=== PATIENT | female | born 1975 | race Caucasian/White ===

== ENCOUNTER 2017-12-18 18:04 | Emergency (ER) | payer BC ==
[2017-12-18] MEDS ORDERED: SODIUM CHLORIDE 0.9% 1,000 ML IV STA (20:53)
[2017-12-18 21:49] LABS: Basophils % (A) 0 %; Eosinophils # (A) 0.2 k/uL (0-0.7); Eosinophils % (A) 2 %; HCT 43.5 % (34.0-46.0); HGB 13.7 gm/dL (11.4-16.0); Lymphocytes # (A) 2.3 k/uL (1.0-4.8); Lymphocytes % (A) 27 %; MCH 26.4 pg (25.0-35.0); MCHC 31.4 g/dL (31.0-37.0); Mean Platelet Volume 8.1; Monocytes # (A) 0.4 k/uL (0-1.0); Monocytes % (A) 4 %; Neutrophils # (A) 5.7 k/uL (1.3-7.7); Neutrophils % (A) 65 %; Platelet Count 182 k/uL (150-450); RBC 5.18 m/uL (3.80-5.40); WBC 8.7 k/uL (3.8-10.6)
[2017-12-18 21:59] LABS: ALT 18 U/L (9-52); AST 19 U/L (14-36); Alkaline Phosphatase 75 U/L (38-126); Anion Gap 15 mmol/L; Blood Urea Nitrogen 11 mg/dL (7-17); Calcium 10.3 mg/dL (8.4-10.2); Carbon Dioxide 25 mmol/L (22-30); Chloride 102 mmol/L (98-107); Glucose 96 mg/dL (74-99); Potassium 3.6 mmol/L (3.5-5.1); Sodium 142 mmol/L (137-145); Total Bilirubin 0.4 mg/dL (0.2-1.3)
[2017-12-18 22:01] LABS: INR 1.2 (<1.2); Partial Thromboplastin Time 24.8 sec (22.0-30.0); Prothrombin Time 11.2 sec (9.0-12.0)
--- NOTE | 2017-12-18 22:03 | XR ---
EXAMINATION TYPE: XR chest 2V DATE OF EXAM: 12/18/2017 COMPARISON: 11/24/2013 HISTORY: Chest pain TECHNIQUE: Frontal and lateral views of the chest are obtained. FINDINGS: Heart and mediastinum are normal. Lungs are clear. Diaphragm is normal. Bony thorax appear s normal. IMPRESSION: Normal chest. No change.
[2017-12-18 22:10] LABS: Creatine Kinase 66 U/L (30-135)
--- NOTE | 2017-12-18 22:21 | ED ---
Chest Pain HPI - General Chief Complaint: Chest Pain Stated Complaint: Chest pain/pain lt arm Time Seen by Provider: 12/18/17 20:36 Source: patient, RN notes reviewed Mode of arrival: ambulatory Limitations: no limitations - History of Present Illness Initial Comments: This is a 42-year-old female presents to the emergency department with chief complaint of chest pain. Patient states that this morning she woke up at approximately 5:30 AM. She states that she had some left-sided facial numbness and left arm numbness. She states that she still has feeling and no weakness in left side of her body but has decreased sensation. Patient states that she also has intermittent sharp pain between her shoulder blades. These occur 1-2 times per hour. The first time she experienced pain was 10 or 11:00 AM this morning. Patient denies any shortness of breath, nausea or vomiting, diaphoresis. She does state that she has a history of chronic back pain with subsequent surgeries. Patient states that she was recently weaned off of her medications for anxiety and panic disorder. She has been off of her Klonopin for one and half weeks and her trazodone for a couple of days. Patient states that she is worried because she has extensive family history of cardiac disease. Patient denies any recent surgeries or hospitalizations. She denies tobacco use. Denies any recent illnesses, fever or chills. - Related Data Home Medications Medication Instructions Recorded Confirmed Multivitamins, Thera [Multivitamin 1 tab PO DAILY 12/18/17 12/18/17 (formulary)] Allergies Allergy/AdvReac Type Severity Reaction Status Date / Time tramadol Allergy SEIZURE Verified 12/18/17 20:58 fentanyl AdvReac Nausea & Verified 12/18/17 20:58 Vomiting moxifloxacin HCl AdvReac HEADACHE Verified 12/18/17 20:58 [From Avelox] nitrofurantoin AdvReac HEADACHE Verified 12/18/17 20:58 macrocrystalline [From Macrodantin] Review of Systems ROS Statement: Those systems with pertinent positive or pertinent negative responses have been documented in the HPI. ROS Other: All systems not noted in ROS Statement are negative. Past Medical History Past Medical History: Hyperlipidemia, Hypertension Additional Past Medical History / Comment(s): ABDOMINAL PAIN, N/V, CHRONIC BACK PAIN, History of Any Multi-Drug Resistant Organisms: None Reported Past Surgical History: Back Surgery, Section Additional Past Surgical History / Comment(s): LAMINECTOMY, DISCECTOMY, D&C X4, CSEC X2 Past Anesthesia/Blood Transfusion Reactions: No Reported Reaction Past Psychological History: Anxiety Smoking Status: Former smoker Past Alcohol Use History: None Reported Past Drug Use History: Marijuana General Exam - General Exam Comments Initial Comments: General: Awake and alert, well-developed; in no apparent distress. HEENT: Head atraumatic, normocephalic. Pupils are equal, round and reactive to light. Extraocular movements intact. Oropharynx moist without erythema or exudate. Neck: Supple. Normal ROM. Cardiovascular: Regular rate and rhythm. No murmurs, rubs or gallops. Chest symmetrical. Respiratory: Lungs clear to auscultation bilaterally. No wheezes, rales or rhonchi. Normal respiratory effort with no use of accessory muscles. Musculoskeletal: Normal ROM, no tenderness, strength 5/5 bilateral upper and lower extremities. Ambulating normally. Pulses are 2+ equal and palpable bilaterally. Skin: [place], warm and dry without rashes or lesions. Neurological: Alert and oriented x3. CN II-XII grossly intact. Speech is fluent and answers are appropriate. No focal neuro deficits. Psychiatric: Normal mood and affect.Appears anxious. Limitations: no limitations Course Vital Signs 12/18/17 12/18/17 18:46 22:49 Temperature 99.7 F H 98.0 F Pulse Rate 75 71 Respiratory 20 17 Rate Blood Pressure 193/93 162/96 O2 Sat by Pulse 100 100 Oximetry Chest [facility] Chest x-ray findings: Heart and mediastinum are normal. Lungs are clear. Diaphragm is normal. Bony thorax is normal. Impression: Normal chest. No change. As read by Dr. Read This is a 42-year-old female presents to the emergency department for evaluation of chest pain. She reports intermittent sharp pain between shoulder blades that began this morning, along with left-sided facial and arm "numbness. " Denies shortness of breath, nausea or vomiting, diaphoresis. On physical examination, cranial nerves are intact. There are no focal neuro deficits. Discussed computed tomography scan of brain with patient who refuses, stating that it is too expensive. She states she will follow up with her primary care provider tomorrow morning regarding this issue. EKG showed normal sinus rhythm. Chest x-ray revealed no acute abnormalities. CBC, CMP and UA were within normal limits. Troponin and cardiac profile are negative. D-dimer was negative. Patient's vital signs are stable and she is in no acute distress. She will be discharged home. Recommended following up with her PCP within the next 1-2 days. Patient is in agreement with plan and voices understanding. All questions were answered. Disposition Clinical Impression: Atypical chest pain Disposition: HOME SELF-CARE Condition: Good Instructions: Chest Pain (ED) Additional Instructions: Please follow up with primary care provider tomorrow morning. Return to emergency department if symptoms should worsen or any concerns arise. Referrals: Maximus Arellano DO [Primary Care Provider] - 1-2 days Time of Disposition: 23:52
[2017-12-18 22:23] LABS: Creatine Kinase MB 0.5 ng/mL (0.0-2.4); Troponin I <0.012 ng/mL (0.000-0.034)
[2017-12-19 00:06] VITALS: BP 132/65; PULSE 78; RESP 20; TEMP 98.9
== END 2017-12-19 00:05 | disposition home or self-care (01) ==
LOC: EC 18:04
DX: R07.89 Other chest pain (principal); R20.0 Anesthesia of skin; Z87.891 Personal history of nicotine dependence; Z79.899 Other long term (current) drug therapy; Z88.1 Allergy status to other antibiotic agents; Z88.5 Allergy status to narcotic agent; Z88.6 Allergy status to analgesic agent
CPT/HCPCS: 36415; 71046; 80053; 82550; 82553; 83735; 84484; 85025; 85379; 85610; 85730; 93005; 96360; 99285

== ENCOUNTER 2019-09-22 10:46 | Inpatient (IN) | payer BC ==
--- NOTE | 2019-09-22 12:04 | ED ---
General Adult HPI - General Chief complaint: Psychiatric Symptoms Stated complaint: mental health, suicidal thoughts Time Seen by Provider: 09/22/19 10:50 Source: patient, RN notes reviewed Mode of arrival: ambulatory Limitations: no limitations - History of Present Illness Initial comments: This is a 44 year old female who presents emergency Department complaining of being depressed and wanting to kill herself. Patient states she would take pills. Patient states she has a long history of depression and she just had a friend Sunday and since then she is extremely depressed and has had quite a few suicidal thoughts. Patient denies any physical complaints today. Patient denies any attempt to harm herself today. Patient states she willingly came in for help. Patient denies any drug use or alcohol use. - Related Data Home Medications Medication Instructions Recorded Confirmed ARIPiprazole [Abilify] 5 mg PO DAILY 09/22/19 09/22/19 Citalopram Hydrobromide [CeleXA] 20 mg PO DAILY 09/22/19 09/22/19 Levothyroxine Sodium [Synthroid] 50 mcg PO DAILY 09/22/19 09/22/19 clonazePAM [KlonoPIN] 0.5 mg PO BID PRN 09/22/19 09/22/19 traZODone HCL [Desyrel] 100 mg PO HS 09/22/19 09/22/19 Allergies Allergy/AdvReac Type Severity Reaction Status Date / Time fentanyl AdvReac Nausea & Verified 09/22/19 12:10 Vomiting moxifloxacin HCl AdvReac HEADACHE Verified 09/22/19 12:10 [From Avelox] nitrofurantoin AdvReac HEADACHE Verified 09/22/19 12:10 macrocrystalline [From Macrodantin] tramadol AdvReac SEIZURE Verified 09/22/19 12:10 Review of Systems ROS Statement: Those systems with pertinent positive or pertinent negative responses have been documented in the HPI. ROS Other: All systems not noted in ROS Statement are negative. Past Medical History Past Medical History: Hyperlipidemia, Hypertension Additional Past Medical History / Comment(s): ABDOMINAL PAIN, N/V, CHRONIC BACK PAIN, History of Any Multi-Drug Resistant Organisms: None Reported Past Surgical History: Back Surgery, Section Additional Past Surgical History / Comment(s): LAMINECTOMY, DISCECTOMY, D&C X4, CSEC X2 Past Anesthesia/Blood Transfusion Reactions: No Reported Reaction Past Psychological History: Anxiety, Depression Smoking Status: Former smoker Past Alcohol Use History: None Reported Past Drug Use History: Marijuana General Exam - General Exam Comments Initial Comments: GENERAL: Patient is well-developed and well-nourished. Patient is nontoxic and well- hydrated and is in mild distress. ENT: Neck is soft and supple. No significant lymphadenopathy is noted. Oropharynx is clear. Moist mucous membranes. Neck has full range of motion without eliciting any pain. EYES: The sclera were anicteric and conjunctiva were pink and moist. Extraocular movements were intact and pupils were equal round and reactive to light. Eyelid s were unremarkable. PULMONARY: Unlabored respirations. Good breath sounds bilaterally. No audible rales rhonchi or wheezing was noted. CARDIOVASCULAR: There is a regular rate and rhythm without any murmurs gallops or rubs. ABDOMEN: Soft and nontender with normal bowel sounds. SKIN: Skin is clear with no lesions or rashes and otherwise unremarkable. NEUROLOGIC: Patient is alert and oriented x3. Cranial nerves II through XII are grossly intact. Motor and sensory are also intact. Normal speech, volume and content. Symmetrical smile. MUSCULOSKELETAL: Normal extremities with adequate strength and full range of motion. No lower extremity swelling or edema. No calf tenderness. LYMPHATICS: No significant lymphadenopathy is noted PSYCHIATRIC: Patient is depressed and is suicidal at this time Limitations: no limitations Course Vital Signs 09/22/19 10:49 Temperature 98.1 F Pulse Rate 82 Respiratory 18 Rate Blood Pressure 145/81 O2 Sat by Pulse 96 Oximetry Medical Decision Making - Medical Decision Making EPS evaluated the patient and determined the patient needed to be admitted. Disposition Clinical Impression: Depression, Suicidal ideation Disposition: ADMITTED IP TO THIS HOSP Referrals: Maximus Arellano DO [Primary Care Provider] - 1-2 days Time of Disposition: 12:58
[2019-09-22] MEDS ORDERED: ACETAMINOPHEN TAB 500 MG TAB PO STA (13:12)
[2019-09-22 13:56] LABS: Amphetamine Screen,Urine Not Detected (NotDetected); Barbiturate Screen,Urine Not Detected (NotDetected); Benzodiazepines Screen,Urine Not Detected (NotDetected); Cocaine Screen,Urine Not Detected (NotDetected); Methadone Screen, Urine Not Detected (NotDetected); Opiate Screen,Urine Not Detected (NotDetected); Oxycodone Screen, Urine Not Detected (NotDetected); Phencyclidine Screen,Urine Not Detected (NotDetected); Tricyclic Antidepressant,Urine Not Detected (NotDetected); Urn Cannabinoid Scrn Detected (NotDetected)
[2019-09-22] MEDS ORDERED: MAG HYDROX/AL HYDROX/SIMETH 30 ML CUP PO PRN (14:09)
[2019-09-22] MEDS ORDERED: MAGNESIUM HYDROXIDE 2,400 MG/10 ML CUP PO PRN (14:09)
[2019-09-22] MEDS ORDERED: LORazepam 2 MG/ML INJ IM PRN (14:11)
[2019-09-22] MEDS: LORazepam 1 MG TAB PO PRN ×2 (14:22→22:56)
[2019-09-22 15:32] VITALS: BMI 29.5
[2019-09-22] MEDS ORDERED: traZODone HCL 100 MG TAB PO SCH (21:00)
[2019-09-23] MEDS: LEVOTHYROXINE 50 MCG TAB PO SCH (05:41)
[2019-09-23] MEDS ORDERED: CITALOPRAM HYDROBROMIDE 20 MG TAB PO SCH (09:00)
[2019-09-23 09:04] LABS: Basophils % (A) 0 %; Eosinophils # (A) 0.1 k/uL (0-0.7); Eosinophils % (A) 1 %; HCT 35.6 % (34.0-46.0); HGB 11.3 gm/dL (11.4-16.0); Hypochromasia Moderate; Lymphocytes # (A) 1.4 k/uL (1.0-4.8); Lymphocytes % (A) 22 %; MCH 24.9 pg (25.0-35.0); MCHC 31.8 g/dL (31.0-37.0); MCV 78.2 fL (80.0-100.0); Mean Platelet Volume 7.4; Monocytes # (A) 0.3 k/uL (0-1.0); Monocytes % (A) 5 %; Neutrophils # (A) 4.5 k/uL (1.3-7.7); Neutrophils % (A) 70 %; Platelet Count 181 k/uL (150-450); RBC 4.55 m/uL (3.80-5.40); RDW 13.8 % (11.5-15.5); WBC 6.4 k/uL (3.8-10.6)
[2019-09-23 09:06] LABS: ALT 16 U/L (9-52); AST 21 U/L (14-36); African American GFR (CKD) >90 (>60 ml/min/1.73 sqM); Albumin 4.5 g/dL (3.5-5.0); Alkaline Phosphatase 70 U/L (38-126); Anion Gap 10 mmol/L; Blood Urea Nitrogen 13 mg/dL (7-17); Calcium 9.5 mg/dL (8.4-10.2); Carbon Dioxide 24 mmol/L (22-30); Chloride 104 mmol/L (98-107); Cholesterol 304 mg/dL (<200); Glucose 96 mg/dL (74-99); HDL Cholesterol 57 mg/dL (40-60); LDL Cholesterol,Calculated 214 mg/dL (0-99); Non-African American GFR(CKD) 82 (>60 ml/min/1.73 sqM); Potassium 4.2 mmol/L (3.5-5.1); Sodium 138 mmol/L (137-145); Total Bilirubin 0.5 mg/dL (0.2-1.3); Total Protein 8.2 g/dL (6.3-8.2); Triglycerides 163 mg/dL (<150)
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
[2019-09-23] MEDS: ARIPiprazole 5 MG TAB PO SCH (13:50)
[2019-09-23 16:38] LABS: Hemoglobin A1C 5.3 % (4.0-6.0)
[2019-09-23] MEDS: ACETAMINOPHEN TAB 325 MG TAB PO PRN (16:39)
[2019-09-23] MEDS: clonazePAM 0.5 MG TAB PO PRN (16:39)
--- NOTE | 2019-09-23 17:26 | P.CONS ---
History of Present Illness - History of Present Illness this is a pleasnt 44 yo F with past medical history of hypothyroidism , hyp erlipidemia , who was admitted to the mental health unit for signs and symptoms of depression and suicidal ideation , medical consult was requested for medical managment ,however pt denies chest pain , no dyspnea, no change in urine or bowel habit , no nausea or vomiting , no abd pain , she is tolerating diet well . no fever. vitals looks stable , labs reviewed showing unremarkable CBC, BMP , pt cholesterol is elevated at 304. Review of Systems CONSTITUTIONAL: No fever, no malaise, no fatigue. HEENT: No recent visual problems or hearing problems. Denied any sore throat. CARDIOVASCULAR: No orthopnea, PND, no palpitations, no syncope. PULMONARY: No shortness of breath, no cough, no hemoptysis. GASTROINTESTINAL: No diarrhea, no nausea, no vomiting, no abdominal pain. Normoactive bowel sounds. NEUROLOGICAL: No headaches, no weakness, no numbness. HEMATOLOGICAL: Denies any bleeding or petechiae. GENITOURINARY: Denies any burning micturition, frequency, or urgency. MUSCULOSKELETAL/RHEUMATOLOGICAL: Denies any joint pain, swelling, or any muscle pain. ENDOCRINE: Denies any polyuria or polydipsia. Past Medical History Past Medical History: Hyperlipidemia, Hypertension Additional Past Medical History / Comment(s): ABDOMINAL PAIN, N/V, CHRONIC BACK PAIN, Chronic L hip pain History of Any Multi-Drug Resistant Organisms: None Reported Past Surgical History: Back Surgery, Section Additional Past Surgical History / Comment(s): LAMINECTOMY, DISCECTOMY, D&C X4, CSEC X2, Colonoscopy Past Anesthesia/Blood Transfusion Reactions: No Reported Reaction Past Psychological History: Anxiety, Depression Smoking Status: Former smoker Past Alcohol Use History: None Reported Additional Past Alcohol Use History / Comment(s): QUIT SMOKING >20YRS AGO, SMOKED 1/2PPD FOR 10 YRS Past Drug Use History: Marijuana - Past Family History Mother Family Medical History: Hypertension, Osteoarthritis (OA) Additional Family Medical History / Comment(s): Cataracts, Unknown Cardiac issues Father Family Medical History: Coronary Artery Disease (CAD), Hyperlipidemia, Osteoarthritis (OA) Additional Family Medical History / Comment(s): Multiple Cardiac Stents, Pre- Diabetic, Deaf, Needs a knee replacement re-done and needs a knee replacement on the other knee Medications and Allergies Home Medications Medication Instructions Recorded Confirmed Type ARIPiprazole [Abilify] 5 mg PO DAILY 09/22/19 09/22/19 History Citalopram Hydrobromide [CeleXA] 20 mg PO DAILY 09/22/19 09/22/19 History Levothyroxine Sodium [Synthroid] 50 mcg PO DAILY 09/22/19 09/22/19 History clonazePAM [KlonoPIN] 0.5 mg PO BID PRN 09/22/19 09/22/19 History traZODone HCL [Desyrel] 100 mg PO HS 09/22/19 09/22/19 History Allergies Allergy/AdvReac Type Severity Reaction Status Date / Time fentanyl AdvReac Nausea & Verified 09/22/19 15:10 Vomiting moxifloxacin HCl AdvReac HEADACHE Verified 09/22/19 15:10 [From Avelox] nitrofurantoin AdvReac HEADACHE Verified 09/22/19 15:10 macrocrystalline [From Macrodantin] tramadol AdvReac SEIZURE Verified 09/22/19 15:10 Physical Exam Vitals: Vital Signs Temp Pulse Resp BP 09/23/19 05:02 98.0 F 80 15 123/89 Intake and Output 09/23/19 09/23/19 09/23/19 06:59 14:59 22:59 Other: Weight 88.178 kg GENERAL: The patient is alert and oriented x3, not in any acute distress. Well developed, well nourished. HEENT: Pupils are round and equally reacting to light. EOMI. No scleral icterus. No conjunctival pallor. Normocephalic, atraumatic. No pharyngeal erythema. No thyromegaly. CARDIOVASCULAR: S1 and S2 present. No murmurs, rubs, or gallops. PULMONARY: Chest is clear to auscultation, no wheezing or crackles. ABDOMEN: Soft, nontender, nondistended, normoactive bowel sounds. No palpable organomegaly. MUSCULOSKELETAL: No joint swelling or deformity. EXTREMITIES: No cyanosis, clubbing, or pedal edema. NEUROLOGICAL: Gross neurological examination did not reveal any focal deficits. SKIN: No rashes. Results CBC & Chem 7: 09/23/19 07:58 09/23/19 07:58 Labs: Abnormal Lab Results - Last 24 Hours (Table) 09/23/19 09/23/19 Range/Units 07:58 07:58 Hgb 11.3 L (11.4-16.0) gm/dL MCV 78.2 L (80.0-100.0) fL MCH 24.9 L (25.0-35.0) pg Triglycerides 163 H (<150) mg/dL Cholesterol 304 H (<200) mg/dL LDL Cholesterol, Calc 214 H (0-99) mg/dL Assessment and Plan Assessment: depression and suicidal ideation dyslipidemia hypothyroidism substance abuse with marijuana Plan: this is a pleasant 44 yo F who presents to mental health for depression and suicidal ideation, managment of her psych illnesses is as per primary psychiatrist team . we will stat low dose lipitor for high cholesterol Labs and medication were reviewed.. Continue same treatment. Continue with symptomatic treatment. Resume home medication. Monitor lytes and vitals. DVT and GI prophylaxis. Further recommendations of the clinical course of the patient DVT prophylaxis: early ambulation we recommend pt follows up with her pcp within one week of discharge thank you for consulting us
[2019-09-23 18:08] LABS: Appearance,Urine Clear (Clear); Bilirubin,Urine Negative (Negative); Blood,Urine Negative (Negative); Color,Urine Light Yellow; Glucose,Urine (UA) Negative (Negative); Ketones,Urine 1+ (Negative); Leukocyte Esterase,Urine Negative (Negative); Nitrite,Urine Negative (Negative); Protein,Urine Negative (Negative); Specific Gravity,Urine 1.011 (1.001-1.035); Urobilinogen,Urine <2.0 mg/dL (<2.0)
[2019-09-23] MEDS: ATORVASTATIN 10 MG TAB PO SCH (21:05)
[2019-09-23] MEDS: MIRTAZAPINE 15 MG TAB PO SCH (21:05)
[2019-09-24] MEDS: LEVOTHYROXINE 50 MCG TAB PO SCH (06:29)
[2019-09-24] MEDS ORDERED: VENLAFAXINE HCL ER 37.5 MG CAP PO SCH (09:00)
[2019-09-24] MEDS ORDERED: CITALOPRAM HYDROBROMIDE 10 MG TAB PO SCH (09:00)
[2019-09-24] MEDS: ARIPiprazole 5 MG TAB PO SCH (09:37)
--- NOTE | 2019-09-24 11:57 | P.PN ---
Progress Note - Text Progress Note Date: 09/24/19 Chief complaint: "I feel better today" Subjective: The patient has been seen today as follow-up, chart reviewed, case discussed with the treatment team. Patient slept about 7 hours last night. Patient has been going to groups and other unit activities. Patient reports fair appetite. Patient continued to be very emotional and crying for most of the time as per report from social workers. Patient reports feeling better emotionally and minimizes depression and hopelessness. She denies any SI today and denies any thoughts to hurt others. She denies any manic or psychotic symptoms. The patient is compliant with her medications and denies any adverse reactions. Review of other systems: Patient denies any physical symptoms besides what has been mentioned above. No breathing problems, no chest pain reported today. Objective: Vitals has been reviewed. Mental status examination; Appearance: Appears stated age, fairly groomed, above average body built, and no specific features. Gait/ posture: Steady gait, normal arm swinging, no abnormal movements, with relaxed posture. Attitude and Behavior: cooperative, related to the interviewer in socially accepted manner, fair eye contact during course of interview. Motor Activity: Normal psychomotor activity. Speech: spontaneous, normal rate, rhythm, and articulation. normal volume. Not pressured. Language: Fluent, articulating. Mood: "depressed, anxious" Affect: Normal range. Thought process: Linear and goal directed. Thought content: No delusions, reports suicidal thoughts, denies homicidal thoughts, reports intention and plan to kill herself but not in the hospital. Perception: Denies any hallucinations. Alertness: No impairment. Orientation: Oriented to time, person, place and situation. Insight regarding psychiatric condition: fair Judgment regarding daily activities and social situation: fair Impulse control: Fair Assessment: Bipolar 2 disorder. Generalized anxiety disorder. Post traumatic stress disorder. Rule out panic disorder. Rule out obsessive-compulsive disorder. Opioid use disorder, mild- moderate in sustained remission Plan: Continue inpatient level of care for further stabilization on medications. Patient still meets inpatient criteria. Continue treatment of bipolar disorder, and anxiety disorders. Precautions: Continue 15 minutes check for safety. Psych education regarding her diagnosis, and treatment option. Provide the patient individual, group therapy, substance use disorder counseling to give better insight and learn coping skills. Consider medical consultation if any acute medical issue arise. Medications: Increase Effexor XR 75 mg daily for depression and anxiety symptoms. Increase Abilify 10 mg daily for mood stabilization. Continue Klonopin 0.5 mg twice daily as needed for severe anxiety or panic attacks. Continue Remeron 15 mg at bedtime for depression and to help was insomnia. Discontinued medications: Trazodone - prior to admission medication and was not helping with depression/ insomnia. Celexa- prior to admission medication and didn't help with depression/ anxiety. Discharge patient to OUTPATIENT services upon a stabilization Prognosis: Some improvement Expected LOS: 2-4 days.
[2019-09-24] MEDS: clonazePAM 0.5 MG TAB PO PRN (14:58)
[2019-09-24] MEDS: ACETAMINOPHEN TAB 325 MG TAB PO PRN (18:02)
[2019-09-24] MEDS ORDERED: ONDANSETRON ODT 4 MG TAB PO PRN (18:49)
[2019-09-24] MEDS ORDERED: hydrALAZINE HCL 10 MG TAB PO STA (18:56)
[2019-09-24] MEDS: ATORVASTATIN 10 MG TAB PO SCH (21:14)
[2019-09-24] MEDS: MIRTAZAPINE 15 MG TAB PO SCH (21:14)
[2019-09-25] MEDS ORDERED: hydrALAZINE HCL 10 MG TAB PO STA (02:32)
[2019-09-25] MEDS: ACETAMINOPHEN TAB 500 MG TAB PO PRN ×3 (03:13→14:51)
[2019-09-25] MEDS: LEVOTHYROXINE 50 MCG TAB PO SCH (07:05)
[2019-09-25] MEDS ORDERED: CITALOPRAM HYDROBROMIDE 10 MG TAB PO ONE (09:00)
[2019-09-25] MEDS: VENLAFAXINE HCL ER 75 MG CAP PO SCH (09:18)
[2019-09-25] MEDS: ARIPiprazole 10 MG TAB PO SCH (09:18)
--- NOTE | 2019-09-25 11:35 | P.PN ---
Progress Note - Text Progress Note Date: 09/25/19 Chief complaint: "I am not crying since yesterday and feel better" Subjective: The patient has been seen today as follow-up, chart reviewed, case discussed with the treatment team. Patient slept about 4-5 hours last night but reports had high BP last night which affected her sleep. Patient has been going to most of the groups and other unit activities. Patient reports good appetite. Patient reports feeling "more stable emotionally" and denies crying, or feeling hopeless. She denies any suicidla or homicidal thoughts and reports last time had SI was the days she came to the hospital. Patient was talking about been processing the of her friend who committed suicide last Sunday and she feels very supported and helped byn the groups and other peers. Patient denies any mood swings, irritable mood, or agitation and denies any manic or psychotic symptoims. The patient is compliant with her medications and denies any adverse reactions. Patient reprots had visit from her family yesterday and it was positive and supportive. Her family shared with her that she looks much better and she was talking to them without crying but positive and enjoyed the visit. Patient requested discharge tomorrow. Discussed with the treatment team and reportedly the patient has been positive, going to groups with no symptoms/ signs of severe depression and denies any S/H ideation with no manic or psychotic symptoms reproted for last 2 days. Review of other systems: Patient denies any physical symptoms besides what has been mentioned above. No breathing problems, no chest pain reported today. Objective: Vitals has been reviewed. BP elevated, medical team involved and will continue managing hypertension. Mental status examination; Appearance: Appears stated age, fairly groomed, above average body built, and no specific features. Gait/ posture: Steady gait, normal arm swinging, no abnormal movements, with relaxed posture. Attitude and Behavior: cooperative, related to the interviewer in socially accepted manner, fair eye contact during course of interview. Motor Activity: Normal psychomotor activity. Speech: spontaneous, normal rate, rhythm, and articulation. normal volume. Not pressured. Language: Fluent, articulating. Mood: "fine" Affect: Normal range. Thought process: Linear and goal directed. Thought content: No delusions, denies suicidal thoughts, denies homicidal thoughts, denies intention or plan to hurt self or otehrs. Perception: Denies any hallucinations. Alertness: No impairment. Orientation: Oriented to time, person, place and situation. Insight regarding psychiatric condition: fair Judgment regarding daily activities and social situation: fair Impulse control: Fair Assessment: Bipolar 2 disorder. Generalized anxiety disorder. Post traumatic stress disorder. Rule out panic disorder. Rule out obsessive-compulsive disorder. Opioid use disorder, mild- moderate in sustained remission Plan: Continue inpatient level of care for further stabilization on medications. Continue treatment of bipolar disorder, and anxiety disorders. Precautions: Continue 15 minutes check for safety. Psych education regarding her diagnosis, and treatment option. Provide the patient individual, group therapy, substance use disorder counseling to give better insight and learn coping skills. Consider medical consultation if any acute medical issue arise. Medications: Continue Effexor XR 75 mg daily for depression and anxiety symptoms. Continue Abilify 10 mg daily for mood stabilization. Continue Klonopin 0.5 mg twice daily as needed for severe anxiety or panic attacks. Continue Remeron 15 mg at bedtime for depression and to help was insomnia. Discontinued medications: Trazodone - prior to admission medication and was not helping with depression/ insomnia. Celexa- prior to admission medication and didn't help with depression/ anxiety. Discharge patient to OUTPATIENT services upon a stabilization Prognosis: Improving Expected LOS: 1-2 days.
[2019-09-25] MEDS: clonazePAM 0.5 MG TAB PO PRN ×2 (13:10→21:32)
[2019-09-25] MEDS ORDERED: amLODIPine 5 MG TAB PO STA (14:19)
[2019-09-25] MEDS: MIRTAZAPINE 15 MG TAB PO SCH (21:32)
[2019-09-25] MEDS: ATORVASTATIN 10 MG TAB PO SCH (21:32)
[2019-09-26 02:27] VITALS: TEMP 98.7
[2019-09-26] MEDS: ACETAMINOPHEN TAB 500 MG TAB PO PRN ×2 (04:25→10:43)
[2019-09-26] MEDS: LEVOTHYROXINE 50 MCG TAB PO SCH (05:56)
[2019-09-26] MEDS ORDERED: amLODIPine 5 MG TAB PO SCH ×2 (09:00)
[2019-09-26] MEDS: ARIPiprazole 10 MG TAB PO SCH (09:19)
[2019-09-26] MEDS: VENLAFAXINE HCL ER 75 MG CAP PO SCH (09:19)
[2019-09-26 09:22] VITALS: BP 152/105; PULSE 99; RESP 20
--- NOTE | 2019-09-26 10:16 | P.DS ---
Providers Date of admission: 09/22/19 13:40 Expected date of discharge: 09/26/19 Attending physician: Shirley Hernandez MD Consults: 09/22/19 14:09 Consult Physician Routine Consulting Provider: Fabby Novak Consult Reason/Comments: H&P and medical Do you want consulting provider notified?: Yes Primary care [facility]: [facility] Course: Brief HPI: As per the HPI from initial psychiatric evaluation during this hospital stay: " Leigh Zaman is a 44-year-old female who currently lives with her and 2 children, employed as a faculty i on call medical assistant, has psychiatric history of depression, and medical history of hyperlipidemia, and hypothyroidism. The patient has been admitted to our inpatient psychiatric services after been transferred from [facility] ER. Patient was initially self-referred to the ER because she was feeling severely depressed and suicidal. The patient has been admitted on voluntary basis to our service. As per emergency room note, the patient came to the ER complaining of severe depression and wanting to kill herself. Patient states she would take pills. Patient states she has a long history of depression and she just had a friend Sunday and since then she is extremely depressed and has had quite a few suicidal thoughts. Based on psychiatric evaluation today, the patient presents very emotional with crying and sobbing for most of the evaluation. She reports feeling severely depressed and has suicidal thoughts since her friend committed suicide last Sunday. She reports has a plan to overdose on pills and yesterday she was thinking all the morning to do it which is scared her so she came to the hospital. Patient reports her depression started when she was 26-year-old after her first miscarriage, and she continued to experience episodes of depression and sometimes episodes of elated and "hyper" mood. She reports her depression comes and goes and he couldn't stay for days or weeks, describes symptoms of severe depression including very depressed mood, feeling hopeless and helpless, and crying for most of the time. She reports has been feeling the same way since Sunday. Also, patient reports symptoms of for sleep disturbances that she couldn't sleep at all and enduring depression her appetite either "I would eat everything", or "not eat at all". She reports continued to have very stressful racing thoughts and very high anxiety since Sunday. She describes previous hypo-manic episodes including times that she feels "invincible", unusual level of increased energy, lack need to sleep due to increased activity with flight of ideas and very impulsive overspending money. She reports similar episodes could last for a few days and she couldn't remember exactly when was the last time has similar symptoms. Patient reports for most of her life feels severe unremitting anxiety, always worried out of proportion to the situations. She admits for always has racing thoughts and feels very tense. Patient reports physical symptoms of anxiety including racing heart, and sometimes stomach cramps. Panic attacks was reported by the patient as "at least to twice a week ". In regard of PTSD symptoms; patient reports symptoms of flashbacks, nightmares and intrusive thoughts related to prior psychological traumas. Regarding OCD symptoms, Patient reports symptoms of repeated, persistent unwanted thoughts mainly related to cleaning and contaminated with germs, and she has continuous urges to wash her hands and to clean things. She reports had washed her hands 6 times in the last 2 hours. Patient denies any current or previous history of auditory or visual hallucinations, and he denies any paranoid ideation. No delusions could be elicited and the patient doesn't presented responding to internal medicine stimuli. She denies history of self-injurious behavior, and he denies chronic feelings of abandonment or rejection by others. " Hospital Course: Psychiatric: The patient was maintained on Abilify for mood stabilization, and she was initiated on Effexor for depression and anxiety, and Remeron to help with sleep disturbances and depression. Prior to admission psychiatric medications Celexa and Trazodone were discontinued because patient reprots poor response the them even maintained taking them for few months. The medication doses has been adjusted to optimize the stability of the psychiatric symptoms, and to avoid side effects. Patient tolerated the above medication/s very well, without side effects. The patient was admitted for a safe and supportive environment. A psychiatric, medical, and psychosocial evaluations were done on admission. The patient's hospital stay is unremarkable. Patient did not exhibit any aggression towards herself or others during her hospitalization, and there was no requirements for emergency medications or restraints. The patient attended all groups to obtain coping skills and process stress. Patient was compliant with her medications. Patient got along with her peers and with staff. The objective signs of depression and mood instability have been improved. Patient denies any suicidal ideation, not made any hopelessness/helplessness statements for more than 3 days prior to discharge. Maximum hospitalization benefit was reached and subsequently discharge was planned, and patient is appropriate to continue treatment on an outpatient basis. On the day of discharge the patient was able to create an appropriate safety plan and denies any side effect of medications. Discussion was held about need to stop use of marijuana , including its effects on mood, interaction with psychiatric medications, and its role in events leading up to admission. Patient is in the contemplative stage of a change. Medical: Patient was initiated on medication for management of hyperlipidemia and hypertension which was diagnosed by medical team during this hospitalization and patient was started on Lipitor and Norvasc by medical team for management of hyperlipidemia and hypertension respectively. Patient continued non-psychiatric home medications levothyroxine for hypothyroidism. Assessment: Assessment at the day of discharge: The patient was seen at the day of discharge. Patient denies any sleep or appetite disturbances, denies feeling hopeless, worthless or helpless. Also, patient denies any other depressive or manic symptoms. Patient denies any psychotic symptoms. Patient denies suicidal or homicidal thoughts, intention or plans. Nurses and therapist reported patient is psychiatrically stable, and agreed to discharge plan. Mental status examination on discharge: Appearance: Appears stated age, fairly groomed, above average body built, and no specific features. Gait/ posture: Steady gait, normal arm swinging, no abnormal movements, with relaxed posture. Attitude and Behavior: cooperative, related to the interviewer in socially accepted manner, fair eye contact during course of interview. Motor Activity: Normal psychomotor activity. Speech: spontaneous, normal rate, rhythm, and articulation. normal volume. Not pressured. Language: Fluent, articulating. Mood: "fine" Affect: Normal range. Thought process: Linear and goal directed. Thought content: No delusions, denies suicidal thoughts, denies homicidal thoughts, denies intention or plan to hurt self or otehrs. Perception: Denies any hallucinations. Alertness: No impairment. Orientation: Oriented to time, person, place and situation. Insight regarding psychiatric condition: fair Judgment regarding daily activities and social situation: fair Impulse control: Fair Discharge diagnoses: Bipolar 2 disorder. Generalized anxiety disorder. Post traumatic stress disorder. Rule out panic disorder. Rule out obsessive-compulsive disorder. Opioid use disorder, mild- moderate in sustained remission Rule out Cannabis Use Disorder Health Concerns: Activity: As tolerated Diet: Low fat, low salt Special Instructions: Labs to be completed after discharge: As clinically indicated by her outpatient psychiatrist and PCP. Pt is currently on Abilify and she was educated about risk of metabolic syndrome and need to continue monitoring weight, and continue monitoring lipid panel and Hb A1C. Discharge checklist for suicide and violence to determine stability: Safety plan was discussed with the patient. Patient denies any current suicidal/ homicidal or violent ideation/plan/ intent. Patient has ability to address stressors/emotions. Patient understands and is comfortable with discharge plan. Outpatient appointments is near [facility] Emergency number (911, crisis number) provided to the patient. Avoid the use of street drugs and alcohol. Take all medications as prescribed. When you are in need of refills please contact your medical provider and/or outpatient psychiatrist to have this done. Please go to scheduled outpatient appointment for aftercare. If symptoms return or become worse call the crisis line at and/or go to the nearest emergency room for an evaluation. Pertinent Studies: Laboratory Tests Range/Units 09/22/19 09/23/19 09/23/19 13:31 07:58 07:58 WBC (3.8-10.6) k/uL 6.4 RBC (3.80-5.40) m/uL 4.55 Hgb (11.4-16.0) gm/dL 11.3 L Hct (34.0-46.0) % 35.6 MCV (80.0-100.0) fL 78.2 L MCH (25.0-35.0) pg 24.9 L MCHC (31.0-37.0) g/dL 31.8 RDW (11.5-15.5) % 13.8 Plt Count (150-450) k/uL 181 Neutrophils % % 70 Lymphocytes % % 22 Monocytes % % 5 Eosinophils % % 1 Basophils % % 0 Neutrophils # (1.3-7.7) k/uL 4.5 Lymphocytes # (1.0-4.8) k/uL 1.4 Monocytes # (0-1.0) k/uL 0.3 Eosinophils # (0-0.7) k/uL 0.1 Basophils # (0-0.2) k/uL 0.0 Hypochromasia Moderate Sodium (137-145) mmol/L Potassium (3.5-5.1) mmol/L Chloride (98-107) mmol/L Carbon Dioxide (22-30) mmol/L Anion Gap mmol/L BUN (7-17) mg/dL Creatinine (0.52-1.04) mg/dL Est GFR (CKD-EPI)AfAm (>60 ml/min/1.73 sqM) Est GFR (CKD-EPI)NonAf (>60 ml/min/1.73 sqM) Glucose (74-99) mg/dL Estimated Ave Glu mg/dL 105 Hemoglobin A1c (4.0-6.0) % 5.3 Calcium (8.4-10.2) mg/dL Total Bilirubin (0.2-1.3) mg/dL AST (14-36) U/L ALT (9-52) U/L Alkaline Phosphatase (38-126) U/L Total Protein (6.3-8.2) g/dL Albumin (3.5-5.0) g/dL Triglycerides (<150) mg/dL Cholesterol (<200) mg/dL LDL Cholesterol, Calc (0-99) mg/dL HDL Cholesterol (40-60) mg/dL TSH (0.465-4.680) mIU/L HCG, Qual Urine Color Urine Appearance (Clear) Urine pH (5.0-8.0) Ur Specific [place] (1.001-1.035) Urine Protein (Negative) Urine Glucose (UA) (Negative) Urine Ketones (Negative) Urine Blood (Negative) Urine Nitrite (Negative) Urine Bilirubin (Negative) Urine Urobilinogen (<2.0) mg/dL Ur Leukocyte Esterase (Negative) Urine Opiates Screen (NotDetected) Not Detected Ur Oxycodone Screen (NotDetected) Not Detected Urine Methadone Screen (NotDetected) Not Detected Ur Propoxyphene Screen (NotDetected) Not Detected Ur Barbiturates Screen (NotDetected) Not Detected U Tricyclic Antidepress (NotDetected) Not Detected Ur Phencyclidine Scrn (NotDetected) Not Detected Ur Amphetamines Screen (NotDetected) Not Detected U Methamphetamines Scrn (NotDetected) Not Detected U Benzodiazepines Scrn (NotDetected) Not Detected Urine Cocaine Screen (NotDetected) Not Detected U Marijuana (THC) Screen (NotDetected) Detected H Range/Units 09/23/19 09/23/19 09/23/19 07:58 18:00 18:00 WBC (3.8-10.6) k/uL RBC (3.80-5.40) m/uL Hgb (11.4-16.0) gm/dL Hct (34.0-46.0) % MCV (80.0-100.0) fL MCH (25.0-35.0) pg MCHC (31.0-37.0) g/dL RDW (11.5-15.5) % Plt Count (150-450) k/uL Neutrophils % % Lymphocytes % % Monocytes % % Eosinophils % % Basophils % % Neutrophils # (1.3-7.7) k/uL Lymphocytes # (1.0-4.8) k/uL Monocytes # (0-1.0) k/uL Eosinophils # (0-0.7) k/uL Basophils # (0-0.2) k/uL Hypochromasia Sodium (137-145) mmol/L 138 Potassium (3.5-5.1) mmol/L 4.2 Chloride (98-107) mmol/L 104 Carbon Dioxide (22-30) mmol/L 24 Anion Gap mmol/L 10 BUN (7-17) mg/dL 13 Creatinine (0.52-1.04) mg/dL 0.86 Est GFR (CKD-EPI)AfAm (>60 ml/min/1.73 sqM) >90 Est GFR (CKD-EPI)NonAf (>60 ml/min/1.73 sqM) 82 Glucose (74-99) mg/dL [address] Glu mg/dL Hemoglobin A1c (4.0-6.0) % Calcium (8.4-10.2) mg/dL 9.5 Total Bilirubin (0.2-1.3) mg/dL 0.5 AST (14-36) U/L 21 ALT (9-52) U/L 16 Alkaline Phosphatase (38-126) U/L 70 Total Protein (6.3-8.2) g/dL 8.2 Albumin (3.5-5.0) g/dL 4.5 Triglycerides (<150) mg/dL 163 H Cholesterol (<200) mg/dL 304 H LDL Cholesterol, Calc (0-99) mg/dL 214 H HDL Cholesterol (40-60) mg/dL 57 TSH (0.465-4.680) mIU/L 2.550 HCG, Qual Not Detected Urine Color Light Yellow Urine Appearance (Clear) Clear Urine pH (5.0-8.0) 6.0 Ur Specific [place] (1.001-1.035) 1.011 Urine Protein (Negative) Negative Urine Glucose (UA) (Negative) Negative Urine Ketones (Negative) 1+ H Urine Blood (Negative) Negative Urine Nitrite (Negative) Negative Urine Bilirubin (Negative) Negative Urine Urobilinogen (<2.0) mg/dL <2.0 Ur Leukocyte Esterase (Negative) Negative Urine Opiates Screen (NotDetected) Ur Oxycodone Screen (NotDetected) Urine Methadone Screen (NotDetected) Ur Propoxyphene Screen (NotDetected) Ur Barbiturates Screen (NotDetected) U Tricyclic Antidepress (NotDetected) Ur Phencyclidine Scrn (NotDetected) Ur Amphetamines Screen (NotDetected) U Methamphetamines Scrn (NotDetected) U Benzodiazepines Scrn (NotDetected) Urine Cocaine Screen (NotDetected) U Marijuana (THC) Screen (NotDetected) Consults 09/22/19 14:09 Consult Physician Routine Consulting Provider: Fabby Novak Consult Reason/Comments: H&P and medical Do you want consulting provider notified?: Yes Procedures: Plan: Patient will continue follow-up at-. As per discharge plan Continue the following medications: As per discharge plan Patient Condition at Discharge: Stable Patient will be discharge to home. Patient Condition at Discharge: Stable Plan - Discharge Summary Discharge Rx Participant: No New Discharge Prescriptions: New ARIPiprazole [Abilify] 10 mg PO DAILY #30 tab Venlafaxine HCl ER [Effexor XR] 75 mg PO DAILY #30 cap.er.24h clonazePAM [KlonoPIN] 0.5 mg PO BID PRN #28 tab PRN Reason: Severe anxiety or panic attack Atorvastatin [Lipitor] 10 mg PO HS #15 tab Mirtazapine [Remeron] 15 mg PO HS #30 tab amLODIPine [Norvasc] 10 mg PO DAILY #30 tab Continue Levothyroxine Sodium [Synthroid] 50 mcg PO DAILY Discontinued traZODone HCL [Desyrel] 100 mg PO HS clonazePAM [KlonoPIN] 0.5 mg PO BID PRN PRN Reason: Anxiety Citalopram Hydrobromide [CeleXA] 20 mg PO DAILY ARIPiprazole [Abilify] 5 mg PO DAILY Discharge Medication List Levothyroxine Sodium [Synthroid] 50 mcg PO DAILY 09/22/19 [History] ARIPiprazole [Abilify] 10 mg PO DAILY #30 tab 09/26/19 [Rx] Atorvastatin [Lipitor] 10 mg PO HS #15 tab 09/26/19 [Rx] Mirtazapine [Remeron] 15 mg PO HS #30 tab 09/26/19 [Rx] Venlafaxine HCl ER [Effexor XR] 75 mg PO DAILY #30 cap.er.24h 09/26/19 [Rx] amLODIPine [Norvasc] 10 mg PO DAILY #30 tab 09/26/19 [Rx] clonazePAM [KlonoPIN] 0.5 mg PO BID PRN #28 tab 09/26/19 [Rx] Follow up Appointment(s)/Referral(s): Maximus Arellano DO [Primary Care Provider] - 1-2 days Patient Instructions/Handouts: Depression (DC), Help Prevent Suicide (DC) Activity/Diet/Wound Care/Special Instructions: Activity and diet as tolerated. Avoid the use of street drugs and alcohol. Take all medications as prescribed. When you are in need of refills on your medications please contact your medical provider and/or outpatient psychiatrist to have this done. Please go to scheduled outpatient appointment for aftercare treatment. If symptoms return or become worse, call the crisis line at and/or go to the nearest emergency room for evaluation. Discharge Disposition: HOME SELF-CARE
[2019-09-26] MEDS: clonazePAM 0.5 MG TAB PO PRN (10:43)
== END 2019-09-26 11:34 | disposition home or self-care (01) | DRG 885 ==
LOC: EC 10:46 → 3MHU 13:40
PROVIDERS: ADMIT Psychiatry & Neurology Psychiatry; ATTEND Psychiatry & Neurology Psychiatry
DX: F31.81 Bipolar II disorder (principal); R45.851 Suicidal ideations; E03.9 Hypothyroidism, unspecified; E78.5 Hyperlipidemia, unspecified; F11.10 Opioid abuse, uncomplicated; F41.0 Panic disorder [episodic paroxysmal anxiety]; F41.1 Generalized anxiety disorder; F42.9 Obsessive-compulsive disorder, unspecified; F43.10 Post-traumatic stress disorder, unspecified; I10 Essential (primary) hypertension; Z79.890 Hormone replacement therapy; Z79.899 Other long term (current) drug therapy; Z81.4 Family history of other substance abuse and dependence; Z82.49 Family history of ischemic heart disease and other diseases of the circulatory system; Z83.3 Family history of diabetes mellitus; Z87.891 Personal history of nicotine dependence; Z91.410 Personal history of adult physical and sexual abuse; Z91.5 Personal history of self-harm
CPT/HCPCS: 80053; 80061; 80306; 81003; 82075; 83036; 84443; 84703; 85025; 93005; 99285

== ENCOUNTER → 2019-11-17 | Outpatient (CLI) | payer BC ==
--- NOTE | 2019-11-18 11:39 | MM ---
Reason for exam: screening (asymptomatic). Last mammogram was performed 4 years and 2 months ago. Physical Findings: A clinical breast exam by your physician is recommended on an annual basis and results should be correlated with mammographic findings. MG Screening Mammo w CAD Bilateral CC and MLO view(s) were taken. Prior study comparison: September 02, 2015, bilateral MG screening mammo w CAD. June 19, 2014, bilateral MG screening mammo w CAD. There are scattered fibroglandular densities. There is no discrete abnormality. No significant changes when compared with prior studies. ASSESSMENT: Negative, BI-RAD 1 RECOMMENDATION: Routine screening mammogram of both breasts in 1 year.
== END | disposition home or self-care (01) ==
LOC: RADMAMWWP 07:12
PROVIDERS: ATTEND Family Medicine
DX: Z12.31 Encounter for screening mammogram for malignant neoplasm of breast (principal)
CPT/HCPCS: 77067

== ENCOUNTER 2020-04-14 08:43 | Observation (INO) | payer BC ==
[2020-04-14] MEDS ORDERED: ASPIRIN 81 MG PO STA (08:58)
[2020-04-14] MEDS ORDERED: NITROGLYCERIN OINT 1 INCH/GM PACKET TOPICAL STA (08:58)
--- NOTE | 2020-04-14 09:01 | ED ---
General Adult HPI - General Chief complaint: Chest Pain Stated complaint: Chest Pain Time Seen by Provider: 04/14/20 08:54 Source: patient, RN notes reviewed Mode of arrival: wheelchair Limitations: no limitations - History of Present Illness Initial comments: Patient is a pleasant 45-year-old female presenting to emergency Department with complaints of chest discomfort. Onset of symptoms was around 6 this morning. Symptoms are persistent. Discomfort is rated 4/10. Discomfort feels like an ache in the sternal region with radiation towards the back. No associated dyspnea, nausea, or diaphoresis. No history of similar symptoms previously. Discomfort is not positional. No leg pain or leg swelling. Patient has family history of cardiac disease. Patient has history of hypertension and hypercholesterolemia. - Related Data Home Medications Medication Instructions Recorded Confirmed Levothyroxine Sodium [Synthroid] 50 mcg PO DAILY 09/22/19 04/14/20 ARIPiprazole [Abilify] 5 mg PO DAILY 04/14/20 04/14/20 Benztropine Mesylate [Cogentin] 0.5 mg PO DAILY 04/14/20 04/14/20 Chlorthalidone [Hygroten] 50 mg PO DAILY 04/14/20 04/14/20 Mirtazapine [Remeron] 7.5 mg PO HS 04/14/20 04/14/20 Potassium 595 Mg 595 mg PO QAM 04/14/20 04/14/20 amLODIPine [Norvasc] 5 mg PO DAILY 04/14/20 04/14/20 clonazePAM [KlonoPIN] 0.5 mg PO QAM 04/14/20 04/14/20 clonazePAM [KlonoPIN] 1 mg PO HS 04/14/20 04/14/20 Previous Rx's Medication Instructions Recorded Atorvastatin [Lipitor] 10 mg PO HS #15 tab 09/26/19 Mirtazapine [Remeron] 15 mg PO HS #30 tab 09/26/19 Venlafaxine HCl ER [Effexor XR] 75 mg PO DAILY #30 cap.er.24h 09/26/19 Allergies Allergy/AdvReac Type Severity Reaction Status Date / Time fentanyl AdvReac Nausea & Verified 04/14/20 09:54 Vomiting moxifloxacin HCl AdvReac HEADACHE Verified 04/14/20 09:54 [From Avelox] nitrofurantoin AdvReac HEADACHE Verified 04/14/20 09:54 macrocrystalline [From Macrodantin] tramadol AdvReac SEIZURE Verified 04/14/20 09:54 Review of Systems ROS Statement: Those systems with pertinent positive or pertinent negative responses have been documented in the HPI. ROS Other: All systems not noted in ROS Statement are negative. Constitutional: Denies: fever Eyes: Denies: eye pain ENT: Denies: ear pain Respiratory: Denies: cough, dyspnea Cardiovascular: Reports: as per HPI, chest pain Endocrine: Denies: fatigue Gastrointestinal: Denies: abdominal pain Genitourinary: Denies: dysuria Musculoskeletal: Denies: back pain Skin: Denies: rash Neurological: Denies: weakness Past Medical History Past Medical History: Hyperlipidemia, Hypertension Additional Past Medical History / Comment(s): ABDOMINAL PAIN, N/V, CHRONIC BACK PAIN, Chronic L hip pain History of Any Multi-Drug Resistant Organisms: None Reported Past Surgical History: Back Surgery, Section Additional Past Surgical History / Comment(s): LAMINECTOMY, DISCECTOMY, D&C X4, CSEC X2, Colonoscopy Past Anesthesia/Blood Transfusion Reactions: No Reported Reaction Past Psychological History: Anxiety, Depression Smoking Status: Former smoker Past Alcohol Use History: None Reported Past Drug Use History: Marijuana - Past Family History Mother Family Medical History: Hypertension, Osteoarthritis (OA) Additional Family Medical History / Comment(s): Cataracts, Unknown Cardiac issues Father Family Medical History: Coronary Artery Disease (CAD), Hyperlipidemia, Osteoar thritis (OA) Additional Family Medical History / Comment(s): Multiple Cardiac Stents, Pre- Diabetic, Deaf, Needs a knee replacement re-done and needs a knee replacement on the other knee General Exam Limitations: no limitations General appearance: alert, in no apparent distress Head exam: Present: normocephalic Eye exam: Present: normal appearance Neck exam: Present: normal inspection Respiratory exam: Present: normal lung sounds bilaterally. Absent: chest wall tenderness Cardiovascular Exam: Present: regular rate, normal rhythm Expanded Peripheral pulses: 2+: Radial (R), Radial (L), Dorsalis Pedis (R), Dorsalis Pedis (L) GI/Abdominal exam: Present: soft. Absent: tenderness Extremities exam: Present: normal inspection. Absent: pedal edema, calf tenderness Back exam: Present: normal inspection. Absent: tenderness Neurological exam: Present: alert Psychiatric exam: Present: normal affect, normal mood Skin exam: Present: normal color Course Vital Signs 04/14/20 08:47 Temperature 98.8 F Pulse Rate 91 Respiratory 18 Rate Blood Pressure 121/85 O2 Sat by Pulse 97 Oximetry EKG Findings - EKG Comments: EKG Findings:: Normal sinus rhythm 90. DC 160. QRS 102. QT 380. QTC 464. Left axis. LVH criteria. No acute ST change. Medical Decision Making - Medical Decision Making Patient reevaluated and resting comfortably in bed. Patient still has mild discomfort, unchanged. Patient family updated on results and plan. Dr. Damon has been paged for admission covering for Dr. Marcelo - Lab Data Result diagrams: 04/14/20 09:05 04/14/20 09:05 Lab Results 04/14/20 04/14/20 04/14/20 Range/Units 09:05 09:05 09:05 WBC 10.0 (3.8-10.6) k/uL RBC 4.86 (3.80-5.40) m/uL Hgb 10.8 L (11.4-16.0) gm/dL Hct 34.4 (34.0-46.0) % MCV 70.8 L (80.0-100.0) fL MCH 22.2 L (25.0-35.0) pg MCHC 31.4 (31.0-37.0) g/dL RDW 16.2 H (11.5-15.5) % Plt Count 200 (150-450) k/uL Neutrophils % 73 % Lymphocytes % 17 % Monocytes % 5 % Eosinophils % 2 % Basophils % 1 % Neutrophils # 7.3 (1.3-7.7) k/uL Lymphocytes # 1.7 (1.0-4.8) k/uL Monocytes # 0.5 (0-1.0) k/uL Eosinophils # 0.2 (0-0.7) k/uL Basophils # 0.1 (0-0.2) k/uL Hypochromasia Slight Anisocytosis Slight Microcytosis Moderate PT 10.0 (9.0-12.0) sec INR 1.0 (<1.2) APTT 24.4 (22.0-30.0) sec D-Dimer 0.54 (<0.60) mg/L FEU Sodium 137 (137-145) mmol/L Potassium 2.7 L* (3.5-5.1) mmol/L Chloride 92 L (98-107) mmol/L Carbon Dioxide 33 H (22-30) mmol/L Anion Gap 12 mmol/L BUN 17 (7-17) mg/dL Creatinine 0.70 (0.52-1.04) mg/dL Est GFR (CKD-EPI)AfAm >90 (>60 ml/min/1.73 sqM) Est GFR (CKD-EPI)NonAf >90 (>60 ml/min/1.73 sqM) Glucose 127 H (74-99) mg/dL Calcium 9.9 (8.4-10.2) mg/dL Magnesium 2.1 (1.6-2.3) mg/dL Total Bilirubin 0.2 (0.2-1.3) mg/dL AST 24 (14-36) U/L ALT 18 (4-34) U/L Alkaline Phosphatase 105 (38-126) U/L Troponin I (0.000-0.034) ng/mL Total Protein 8.5 H (6.3-8.2) g/dL Albumin 4.6 (3.5-5.0) g/dL 04/14/20 Range/Units 09:05 WBC (3.8-10.6) k/uL RBC (3.80-5.40) m/uL Hgb (11.4-16.0) gm/dL Hct (34.0-46.0) % MCV (80.0-100.0) fL MCH (25.0-35.0) pg MCHC (31.0-37.0) g/dL RDW (11.5-15.5) % Plt Count (150-450) k/uL Neutrophils % % Lymphocytes % % Monocytes % % Eosinophils % % Basophils % % Neutrophils # (1.3-7.7) k/uL Lymphocytes # (1.0-4.8) k/uL Monocytes # (0-1.0) k/uL Eosinophils # (0-0.7) k/uL Basophils # (0-0.2) k/uL Hypochromasia Anisocytosis Microcytosis PT (9.0-12.0) sec INR (<1.2) APTT (22.0-30.0) sec D-Dimer (<0.60) mg/L FEU Sodium (137-145) mmol/L Potassium (3.5-5.1) mmol/L Chloride (98-107) mmol/L Carbon Dioxide (22-30) mmol/L Anion Gap mmol/L BUN (7-17) mg/dL Creatinine (0.52-1.04) mg/dL Est GFR (CKD-EPI)AfAm (>60 ml/min/1.73 sqM) Est GFR (CKD-EPI)NonAf (>60 ml/min/1.73 sqM) Glucose (74-99) mg/dL Calcium (8.4-10.2) mg/dL Magnesium (1.6-2.3) mg/dL Total Bilirubin (0.2-1.3) mg/dL AST (14-36) U/L ALT (4-34) U/L Alkaline Phosphatase (38-126) U/L Troponin I <0.012 (0.000-0.034) ng/mL Total Protein (6.3-8.2) g/dL Albumin (3.5-5.0) g/dL - Radiology Data Radiology results: image reviewed (Chest x-ray shows no acute process) Disposition Clinical Impression: Chest pain, Hypokalemia Disposition: ADMITTED IP TO THIS HOSP Is patient prescribed a controlled substance at d/c from ED?: No Referrals: Maximus Arellano DO [Primary Care Provider] - 1-2 days Decision Time: 10:50
--- NOTE | 2020-04-14 09:24 | XR ---
EXAMINATION TYPE: XR chest 2V DATE OF EXAM: 04/14/2020 COMPARISON: 12/18/2017 INDICATION: Chest pain, chest pressure TECHNIQUE: Frontal and lateral views of the chest are obtained. FINDINGS: The heart size is normal. The pulmonary vasculature is normal. The lungs are clear. IMPRESSION: 1. No acute pulmonary process.
[2020-04-14 09:38] LABS: Anisocytosis Slight; Basophils # (A) 0.1 k/uL (0-0.2); Basophils % (A) 1 %; Eosinophils # (A) 0.2 k/uL (0-0.7); Eosinophils % (A) 2 %; HCT 34.4 % (34.0-46.0); HGB 10.8 gm/dL (11.4-16.0); Hypochromasia Slight; Lymphocytes # (A) 1.7 k/uL (1.0-4.8); Lymphocytes % (A) 17 %; MCH 22.2 pg (25.0-35.0); MCHC 31.4 g/dL (31.0-37.0); MCV 70.8 fL (80.0-100.0); Mean Platelet Volume 8.8; Microcytosis Moderate; Monocytes # (A) 0.5 k/uL (0-1.0); Monocytes % (A) 5 %; Neutrophils # (A) 7.3 k/uL (1.3-7.7); Neutrophils % (A) 73 %; Platelet Count 200 k/uL (150-450); RBC 4.86 m/uL (3.80-5.40); RDW 16.2 % (11.5-15.5)
[2020-04-14 09:47] LABS: ALT 18 U/L (4-34); AST 24 U/L (14-36); African American GFR (CKD) >90 (>60 ml/min/1.73 sqM); Albumin 4.6 g/dL (3.5-5.0); Alkaline Phosphatase 105 U/L (38-126); Anion Gap 12 mmol/L; Blood Urea Nitrogen 17 mg/dL (7-17); Calcium 9.9 mg/dL (8.4-10.2); Carbon Dioxide 33 mmol/L (22-30); Chloride 92 mmol/L (98-107); Glucose 127 mg/dL (74-99); Magnesium 2.1 mg/dL (1.6-2.3); Non-African American GFR(CKD) >90 (>60 ml/min/1.73 sqM); Sodium 137 mmol/L (137-145); Total Bilirubin 0.2 mg/dL (0.2-1.3); Total Protein 8.5 g/dL (6.3-8.2)
[2020-04-14 09:55] LABS: D-Dimer 0.54 mg/L FEU (<0.60); Partial Thromboplastin Time 24.4 sec (22.0-30.0)
[2020-04-14 10:26] LABS: Potassium 2.7 mmol/L (3.5-5.1)
[2020-04-14] MEDS ORDERED: POTASSIUM CHLORIDE 2 MEQ/ML 20 ML VIAL IVPB STA (10:30)
[2020-04-14] MEDS ORDERED: POTASSIUM CHLORIDE ER 20 MEQ TAB.ER PO STA ×2 (10:30→17:10)
[2020-04-14] MEDS ORDERED: POTASSIUM CHLORIDE 10 MEQ in WATER FOR INJECTION 1 100ML.BAG IVPB STA (10:31)
[2020-04-14] MEDS ORDERED: NITROGLYCERIN SL TABS 0.4 MG TAB SUBLINGUAL PRN (10:50)
[2020-04-14] MEDS: NITROGLYCERIN OINT 1 INCH/GM PACKET TOPICAL SCH ×3 (14:14→22:52)
[2020-04-14] MEDS ORDERED: clonazePAM 0.5 MG TAB PO PRN (14:27)
[2020-04-14] MEDS ORDERED: clonazePAM 1 MG TAB PO PRN (14:27)
--- NOTE | 2020-04-14 14:40 | P.HPIM ---
History of Present Illness patient is a pleasant 45-year-old female came in with complains of midsternal chest pain which started around the today morning lasted for a few hours for stress-induced 10 in severity patient the pain is achy in nature no associated dyspnea nausea or diaphoresis patient had slight lightheadedness. Patient denied any fever chills patient had any cough or chest pain is nonpleuritic not associated with food. Patient denied any cough chest x-ray did not show pneumonia. Patient never had any cardiac workup in the past does have history of hypertension and hyperlipidemia does have prerenal premature coronary artery disease history in the family in her father.he does smoke marijuana. On daily basis. Review of Systems REVIEW OF SYSTEMS: CONSTITUTIONAL: No fever, no malaise, no fatigue. HEENT: No recent visual problems or hearing problems. Denied any sore throat. CARDIOVASCULAR: No, orthopnea, PND, no palpitations, no syncope. PULMONARY: No shortness of breath, no cough, no hemoptysis. GASTROINTESTINAL: No diarrhea, no nausea, no vomiting, no abdominal pain. NEUROLOGICAL: No headaches, no weakness, no numbness. HEMATOLOGICAL: Denies any bleeding or petechiae. GENITOURINARY: Denies any burning micturition, frequency, or urgency. MUSCULOSKELETAL/RHEUMATOLOGICAL: Denies any joint pain, swelling, or any muscle pain. ENDOCRINE: Denies any polyuria or polydipsia. The rest of the 14-point review of systems is negative. Past Medical History Past Medical History: Hyperlipidemia, Hypertension Additional Past Medical History / Comment(s): CHRONIC BACK PAIN, Chronic L hip pain, left foot drop History of Any Multi-Drug Resistant Organisms: None Reported Past Surgical History: Back Surgery, Section Additional Past Surgical History / Comment(s): LAMINECTOMY, DISCECTOMY, D&C X4, CSEC X2, Colonoscopy Past Anesthesia/Blood Transfusion Reactions: No Reported Reaction Past Psychological History: Anxiety, Bipolar, Depression, PTSD Smoking Status: Former smoker Past Alcohol Use History: None Reported Additional Past Alcohol Use History / Comment(s): QUIT SMOKING >20YRS AGO, SMOKED 1/2PPD FOR 10 YRS Past Drug Use History: Marijuana Additional Drug Use History / Comment(s): SMOKES DAILY, INSTRUCTED TO HOLD 24HRS PRIOR TO PROCEDURE - Past Family History Mother Family Medical History: Hypertension, Osteoarthritis (OA) Additional Family Medical History / Comment(s): Cataracts, Unknown Cardiac issues Father Family Medical History: Coronary Artery Disease (CAD), Hyperlipidemia, Osteoarthritis (OA) Additional Family Medical History / Comment(s): Multiple Cardiac Stents, Pre- Diabetic, Deaf, Needs a knee replacement re-done and needs a knee replacement on the other knee Medications and Allergies Home Medications Medication Instructions Recorded Confirmed Type Levothyroxine Sodium [Synthroid] 50 mcg PO DAILY 09/22/19 04/14/20 History Atorvastatin [Lipitor] 10 mg PO HS #15 tab 09/26/19 04/14/20 Rx Mirtazapine [Remeron] 15 mg PO HS #30 tab 09/26/19 04/14/20 Rx Venlafaxine HCl ER [Effexor XR] 75 mg PO DAILY #30 cap.er.24h 09/26/19 04/14/20 Rx ARIPiprazole [Abilify] 5 mg PO DAILY 04/14/20 04/14/20 History Benztropine Mesylate [Cogentin] 0.5 mg PO DAILY 04/14/20 04/14/20 History Chlorthalidone [Hygroten] 50 mg PO DAILY 04/14/20 04/14/20 History Mirtazapine [Remeron] 7.5 mg PO HS 04/14/20 04/14/20 History Potassium 595 Mg 595 mg PO QAM 04/14/20 04/14/20 History amLODIPine [Norvasc] 5 mg PO DAILY 04/14/20 04/14/20 History clonazePAM [KlonoPIN] 0.5 mg PO QAM 04/14/20 04/14/20 History clonazePAM [KlonoPIN] 1 mg PO HS 04/14/20 04/14/20 History Allergies Allergy/AdvReac Type Severity Reaction Status Date / Time fentanyl AdvReac Nausea & Verified 04/14/20 09:54 Vomiting moxifloxacin HCl AdvReac HEADACHE Verified 04/14/20 09:54 [From Avelox] nitrofurantoin AdvReac HEADACHE Verified 04/14/20 09:54 macrocrystalline [From Macrodantin] tramadol AdvReac SEIZURE Verified 04/14/20 09:54 Physical Exam Vitals: Vital Signs Temp Pulse Pulse Resp BP BP Pulse Ox 04/14/20 13:41 97.7 F 92 18 138/78 98 04/14/20 12:30 88 17 138/79 96 04/14/20 11:30 89 18 134/91 96 04/14/20 11:00 85 16 129/90 95 04/14/20 10:30 87 30 H 135/91 95 04/14/20 10:00 83 10 L 137/89 96 04/14/20 09:30 88 12 131/98 95 04/14/20 08:47 98.8 F 91 18 121/85 97 Intake and Output 04/13/20 04/14/20 04/14/20 22:59 06:59 14:59 Other: Weight 110.677 kg PHYSICAL EXAMINATION: GENERAL: The patient is alert and oriented x3, not in any acute distress. Well developed, well nourished. HEENT: Pupils are round and equally reacting to light. EOMI. No scleral icterus. No conjunctival pallor. Normocephalic, atraumatic. No pharyngeal erythema. No thyromegaly. CARDIOVASCULAR: S1 and S2 present. No murmurs, rubs, or gallops. PULMONARY: Chest is clear to auscultation, no wheezing or crackles. ABDOMEN: Soft, nontender, nondistended, normoactive bowel sounds. No palpable organomegaly. MUSCULOSKELETAL: No joint swelling or deformity. EXTREMITIES: No cyanosis, clubbing, or pedal edema. NEUROLOGICAL: Gross neurological examination did not reveal any focal deficits. SKIN: No rashes. Results CBC & Chem 7: 04/14/20 09:05 04/14/20 09:05 Labs: Abnormal Lab Results - Last 24 Hours (Table) 04/14/20 04/14/20 Range/Units 09:05 09:05 Hgb 10.8 L (11.4-16.0) gm/dL MCV 70.8 L (80.0-100.0) fL MCH 22.2 L (25.0-35.0) pg RDW 16.2 H (11.5-15.5) % Potassium 2.7 L* (3.5-5.1) mmol/L Chloride 92 L (98-107) mmol/L Carbon Dioxide 33 H (22-30) mmol/L Glucose 127 H (74-99) mg/dL Total Protein 8.5 H (6.3-8.2) g/dL Thrombosis Risk Factor Assmnt - Choose All That Apply Any of the Below Risk Factors Present?: Yes Each Factor Represents 1 point: Age 41-60 years, Obesity (BMI >25) Other Risk Factors: No Other congenital or acquired thrombophilia - If yes, enter type in comment: No Thrombosis Risk Factor Assessment Total Risk Factor Score: 2 Thrombosis Risk Factor Assessment Level: Low Risk Assessment and Plan Plan: -chest pain atypical: Patient does have risk factors may need a stress test we'll rule out acute coronary syndromes with a 2 more sets of troponinsEKG showe d some nonspecific ST-T wave changes and left ventricular hypertrophy changes. -Hypokalemia secondary to chlorthalidone potassium will be replaced. Patient restarted back on chlorthalidone Will repeat basic metabolic profile tomorrow -hypertension blood pressure is well controlled at this time patient will be resumed on her home regimen. -hyperlipidemia -Depression For above-mentioned chronic medical problems patient will be resumed on appropriate home medications. DVT prophylaxis early ambulation
[2020-04-14 15:53] LABS: Potassium 2.7 mmol/L (3.5-5.1)
[2020-04-14] MEDS ORDERED: MIRTAZAPINE 15 MG TAB PO SCH ×2 (21:00)
[2020-04-14] MEDS ORDERED: ATORVASTATIN 10 MG TAB PO SCH (21:00)
[2020-04-15] MEDS: NITROGLYCERIN OINT 1 INCH/GM PACKET TOPICAL SCH ×2 (05:47→14:14)
[2020-04-15] MEDS ORDERED: LEVOTHYROXINE 50 MCG TAB PO SCH (06:30)
[2020-04-15 06:46] LABS: African American GFR (CKD) >90 (>60 ml/min/1.73 sqM); Anion Gap 10 mmol/L; Blood Urea Nitrogen 13 mg/dL (7-17); Calcium 8.8 mg/dL (8.4-10.2); Carbon Dioxide 30 mmol/L (22-30); Chloride 97 mmol/L (98-107); Cholesterol 202 mg/dL (<200); Glucose 130 mg/dL (74-99); HDL Cholesterol 46 mg/dL (40-60); LDL Cholesterol,Calculated 125 mg/dL (0-99); Non-African American GFR(CKD) >90 (>60 ml/min/1.73 sqM); Potassium 2.9 mmol/L (3.5-5.1); Sodium 137 mmol/L (137-145); Triglycerides 154 mg/dL (<150)
[2020-04-15] MEDS ORDERED: Potassium Replacement Protocol 1 EACH MISC MISCELLANE PRN (07:42)
[2020-04-15] MEDS ORDERED: POTASSIUM CHLORIDE 20 MEQ in WATER FOR INJECTION 1 100ML.BAG IVPB STA (07:49)
[2020-04-15] MEDS ORDERED: POTASSIUM CHLORIDE ER 20 MEQ TAB.ER PO SCH ×2 (08:00→09:00)
[2020-04-15 08:15] VITALS: RESP 14
[2020-04-15] MEDS ORDERED: ARIPiprazole 5 MG TAB PO SCH (09:00)
[2020-04-15] MEDS ORDERED: CHLORTHALIDONE 25 MG TAB PO SCH ×2 (09:00)
[2020-04-15] MEDS ORDERED: ASPIRIN 81 MG PO SCH (09:00)
[2020-04-15] MEDS ORDERED: ASPIRIN 325 MG TAB PO SCH (09:00)
[2020-04-15] MEDS ORDERED: amLODIPine 5 MG TAB PO SCH (09:00)
[2020-04-15] MEDS ORDERED: BENZTROPINE MESYLATE 0.5 MG TAB PO SCH (09:00)
[2020-04-15] MEDS ORDERED: VENLAFAXINE HCL ER 75 MG CAP PO SCH (09:00)
[2020-04-15] MEDS ORDERED: POTASSIUM CHLORIDE ER 20 MEQ TAB.ER PO STA (10:41)
[2020-04-15 11:42] VITALS: BP 151/99; PULSE 98; TEMP 97.5
--- NOTE | 2020-04-15 11:45 | ECHOF ---
Referral Reason:cp MEASUREMENTS -------- HEIGHT: 172.7 cm WEIGHT: 110.7 kg BP: RVIDd: 2.8 cm (< 3.3) IVSd: 1.6 cm (0.6 - 1.1) LVIDd: 3.0 cm (3.9 - 5.3) LVPWd: 1.4 cm (0.6 - 1.1) IVSs: 2.1 cm LVIDs: 1.9 cm LVPWs: 2.3 cm LAESV Index (A-L): 18.01 ml/m Ao Diam: 2.4 cm (2.0 - 3.7) AV Cusp: 1.6 cm (1.5 - 2.6) LA Diam: 3.7 cm (2.7 - 3.8) MV EXCURSION: 15.618 mm (> 18.000) MV EF SLOPE: 90 mm/s (70 - 150) EPSS: 0.4 cm MV E Greg: 0.60 m/s MV DecT: 241 ms MV A Greg: 0.63 m/s MV E/A Ratio: 0.96 RAP: 5.00 mmHg RVSP: 12.89 mmHg FINDINGS -------- Sinus rhythm. This was a technically adequate study. The left ventricular size is normal. There is moderate concentric left ventricular hypertrophy. O verall left ventricular systolic function is normal with, an EF between 55 - 60 %. The diastolic fi lling pattern is normal for the age of the patient 9.27. The right ventricle is normal in size. The left atrial size is normal. Normal LA size by volume 22+/-6 ml/m2. The right atrial size is normal. The aortic valve is trileaflet and appears structurally normal. The mitral valve is normal. There is trace mitral regurgitation. The tricuspid valve appears structurally normal. Trace tricuspid regurgitation present. Right javier tricular systolic pressure is normal at < 35 mmHg. There is no pulmonic regurgitation present. The aortic root size is normal. Normal inferior vena cava with normal inspiratory collapse consistent with estimated right atrial pre ssure of 5 mmHg. There is no pericardial effusion. CONCLUSIONS -------- 1. Sinus rhythm. 2. This was a technically adequate study. 3. The left ventricular size is normal. 4. There is moderate concentric left ventricular hypertrophy. 5. Overall left ventricular systolic function is normal with, an EF between 55 - 60 %. 6. The diastolic filling pattern is normal for the age of the patient 9.27 7. The right ventricle is normal in size. 8. The left atrial size is normal. 9. Normal LA size by volume 22+/-6 ml/m2. 10. The right atrial size is normal. 11. The aortic valve is trileaflet and appears structurally normal. 12. The mitral valve is normal. 13. There is trace mitral regurgitation. 14. The tricuspid valve appears structurally normal. 15. Trace tricuspid regurgitation present. 16. Right ventricular systolic pressure is normal at < 35 mmHg. 17. There is no pulmonic regurgitation present. 18. The aortic root size is normal. 19. Normal inferior vena cava with normal inspiratory collapse consistent with estimated right atrial pressure of 5 mmHg. 20. There is no pericardial effusion. [employer] OPERATOR: Alyssa Bolton RDCS
--- NOTE | 2020-04-15 12:06 | P.CRDCN ---
History of Present Illness History of present illness: HISTORY OF PRESENTING ILLNESS This is a pleasant 45-year-old female past medical history significant for hypertension and dyslipidemia. She denies prior history of coronary artery disease and does not follow in the office with a cigarette making examiner. We have been asked to see in consultation for chest pain. She is seen and examined resting comfortably in no acute distress. She presented to the ER with symptoms of constant chest pain described as achy sensation in the mid-sternal area with radiation at times to the back. She denies radiation down the arm, into the neck or jaw. She had no associated shortness of breath, dizziness, palpitations, nausea, vomiting or diaphoresis. The pain is no worsened by activity, exertion, breathing or movement of her torso. DIAGNOSTICS EKG reveals sinus mechanism with non-specific changes and right bundle branch block. Chest xray negative for an acute cardiopulmonary process. Laboratory reviewed, WBC 10, hemoglobin 10.8, platelets 200, d-dimer 0.54, sodium 137, potassium 2.7 on admission repeat today 2.9, creatinine 0.7, magnesium 2.1, cardiac enzymes negative 3, LDL 125, HDL 46. Current cardiac medications include chlorthalidone 25 mg daily, atorvastatin 10 mg daily, Norvasc 5 mg daily. REVIEW OF SYSTEMS At the time of my exam: CONSTITUTIONAL: Denies fever or chills. CARDIOVASCULAR: Denies chest pain, shortness of breath, orthopnea, PND or palpitations. RESPIRATORY: Denies cough. GASTROINTESTINAL: Denies abdominal pain, diarrhea, constipation, nausea or vomiting. MUSCULOSKELETAL: Denies myalgias. NEUROLOGIC: Denies numbness, tingling or weakness. ENDOCRINE: Denies fatigue, weight change, polydipsia or polyurina. GENITOURINARY: Denies burning, hematuria or urgency with micturation. HEMATOLOGIC: Denies history of anemia or bleeding. PHYSICAL EXAMINATION Blood pressure 151/99 heart rate 98 afebrile and maintaining oxygen saturation on room air. CONSTITUTIONAL: No apparent distress. HEENT: Head is normocephalic. Pupils are equal, round. Sclerae anicteric. Mucous membranes of the mouth are moist. No JVD. No carotid bruit. CHEST EXAMINATION: Lungs are clear to auscultation. No chest wall tenderness is noted on palpation or with deep breathing. HEART EXAMINATION: Regular rate and rhythm. S1, S2 heard. No murmurs, gallops or rub. ABDOMEN: Soft, nontender. Positive bowel sounds. EXTREMITIES: 2+ peripheral pulses, no lower extremity edema and no calf tenderness. NEUROLOGIC EXAMINATION: Patient is awake, alert and oriented x3. ASSESSMENT Chest pain, atypical. An acute event has been ruled out. Hypokalemia Hypertension Dyslipidemia PLAN An acute coronary event has been ruled out with no EKG evidence of ischemia and negative cardiac enzymes. Continue to replace potassium per protocol. Obtain 2-D echocardiogram and Doppler study to assess cardiac structure and function. Increase atorvastatin to 40 mg daily. Secondary to significant hypokalemia we will recommend outpatient stress testing in the office. Follow-up with Dr. Trejo in 2 weeks. Thank you kindly for this consultation. Nurse Practitioner note has been reviewed, I agree with a documented findings and plan of care. Patient was seen and examined. Past Medical History Past Medical History: Hyperlipidemia, Hypertension Additional Past Medical History / Comment(s): CHRONIC BACK PAIN, Chronic L hip pain, left foot drop History of Any Multi-Drug Resistant Organisms: None Reported Past Surgical History: Back Surgery, Section Additional Past Surgical History / Comment(s): LAMINECTOMY, DISCECTOMY, D&C X4, CSEC X2, Colonoscopy Past Anesthesia/Blood Transfusion Reactions: No Reported Reaction Past Psychological History: Anxiety, Bipolar, Depression, PTSD Smoking Status: Former smoker Past Alcohol Use History: None Reported Additional Past Alcohol Use History / Comment(s): QUIT SMOKING >20YRS AGO, SMOKED 1/2PPD FOR 10 YRS Past Drug Use History: Marijuana Additional Drug Use History / Comment(s): SMOKES DAILY, INSTRUCTED TO HOLD 24HRS PRIOR TO PROCEDURE - Past Family History Mother Family Medical History: Hypertension, Osteoarthritis (OA) Additional Family Medical History / Comment(s): Cataracts, Unknown Cardiac issues Father Family Medical History: Coronary Artery Disease (CAD), Hyperlipidemia, Osteoarthritis (OA) Additional Family Medical History / Comment(s): Multiple Cardiac Stents, Pre- Diabetic, Deaf, Needs a knee replacement re-done and needs a knee replacement on the other knee Medications and Allergies Home Medications Medication Instructions Recorded Confirmed Type Levothyroxine Sodium [Synthroid] 50 mcg PO DAILY 09/22/19 04/14/20 History Atorvastatin [Lipitor] 10 mg PO HS #15 tab 09/26/19 04/14/20 Rx Venlafaxine HCl ER [Effexor XR] 75 mg PO DAILY #30 cap.er.24h 09/26/19 04/14/20 Rx ARIPiprazole [Abilify] 5 mg PO DAILY 04/14/20 04/14/20 History Benztropine Mesylate [Cogentin] 0.5 mg PO DAILY 04/14/20 04/14/20 History Mirtazapine [Remeron] 7.5 mg PO HS 04/14/20 04/14/20 History amLODIPine [Norvasc] 5 mg PO DAILY 04/14/20 04/14/20 History clonazePAM [KlonoPIN] 0.5 mg PO QAM 04/14/20 04/14/20 History clonazePAM [KlonoPIN] 1 mg PO HS 04/14/20 04/14/20 History Chlorthalidone [Hygroton] 25 mg PO DAILY tab 04/15/20 Rx Potassium Chloride ER [K-Dur 20] 20 meq PO DAILY #30 tab.er.prt 04/15/20 Rx Allergies Allergy/AdvReac Type Severity Reaction Status Date / Time fentanyl AdvReac Nausea & Verified 04/14/20 09:54 Vomiting moxifloxacin HCl AdvReac HEADACHE Verified 04/14/20 09:54 [From Avelox] nitrofurantoin AdvReac HEADACHE Verified 04/14/20 09:54 macrocrystalline [From Macrodantin] tramadol AdvReac SEIZURE Verified 04/14/20 09:54 Physical Exam Vitals: Vital Signs Temp Pulse Pulse Resp BP BP Pulse Ox 04/15/20 11:44 98 14 04/15/20 11:41 97.5 F L 98 14 151/99 99 04/15/20 08:00 97.9 F 83 14 128/82 95 04/15/20 04:10 85 16 04/15/20 04:00 97 F L 92 16 129/67 04/14/20 22:11 85 15 04/14/20 22:09 97.7 F 85 15 113/62 93 L 04/14/20 19:20 98.3 F 92 19 147/62 95 04/14/20 16:00 92 18 04/14/20 13:41 97.7 F 92 18 138/78 98 04/14/20 12:30 88 17 138/79 96 Intake and Output 04/14/20 04/15/20 04/15/20 22:59 06:59 14:59 Intake Total 680 Balance 680 Intake: Oral 480 Other 200 Other: Voiding Method Toilet Toilet Toilet # Voids 1 2 Results 04/14/20 09:05 04/15/20 05:48 Cardiac Enzymes 04/14/20 04/14/20 Range/Units 14:54 20:42 Troponin I <0.012 <0.012 (0.000-0.034) ng/mL Lipids 04/15/20 Range/Units 05:48 Triglycerides 154 H (<150) mg/dL Cholesterol 202 H (<200) mg/dL HDL Cholesterol 46 (40-60) mg/dL Comprehensive Metabolic Panel 04/14/20 04/15/20 Range/Units 14:54 05:48 Sodium 137 (137-145) mmol/L Potassium 2.7 L* 2.9 L (3.5-5.1) mmol/L Chloride 97 L (98-107) mmol/L Carbon Dioxide 30 (22-30) mmol/L BUN 13 (7-17) mg/dL Creatinine 0.57 (0.52-1.04) mg/dL Glucose 130 H (74-99) mg/dL Calcium 8.8 (8.4-10.2) mg/dL Current Medications Generic Name Dose Route Start Last Admin Trade Name Freq PRN Reason Stop Dose Admin Amlodipine Besylate 5 mg 04/15/20 09:00 04/15/20 09:20 Norvasc PO 5 mg DAILY KERRI Administration Aripiprazole 5 mg 04/15/20 09:00 04/15/20 09:21 Abilify PO 5 mg DAILY KERRI Administration Aspirin 81 mg 04/15/20 09:00 04/15/20 09:20 Aspirin PO 81 mg DAILY KERRI Administration Atorvastatin Calcium 10 mg 04/14/20 21:00 04/14/20 20:33 Lipitor PO 10 mg HS KERRI Administration Benztropine Mesylate 0.5 mg 04/15/20 09:00 04/15/20 09:21 Cogentin PO 0.5 mg DAILY KERRI Administration Chlorthalidone 25 mg 04/15/20 09:00 04/15/20 09:20 Hygroton PO 25 mg DAILY KERRI Administration Clonazepam 0.5 mg 04/14/20 14:27 Klonopin PO QAM PRN Anxiety Clonazepam 1 mg 04/14/20 14:27 04/14/20 21:07 Klonopin PO 1 mg HS PRN Administration Anxiety Levothyroxine Sodium 50 mcg 04/15/20 06:30 04/15/20 06:50 Synthroid PO 50 mcg DAILY@0630 KERRI Administration Mirtazapine 7.5 mg 04/14/20 21:00 04/14/20 20:31 Remeron PO 7.5 mg HS KERRI Administration Nitroglycerin 0.4 mg 04/14/20 10:50 Nitrostat SUBLINGUAL Q5M PRN Chest Pain Nitroglycerin 1 inch 04/14/20 12:00 04/15/20 05:47 Nitro-Bid Oint TOPICAL Not Given Q6HR KERRI Potassium Chloride 20 meq 04/15/20 09:00 04/15/20 09:20 K-Dur 20 PO 20 meq DAILY KERRI Administration Sodium Chloride 10 ml 04/14/20 21:00 04/15/20 09:21 Saline Flush IV 10 ml BID KERRI Administration Venlafaxine HCl 75 mg 04/15/20 09:00 04/15/20 09:21 Effexor Xr PO 75 mg DAILY KERRI Administration Intake and Output 04/14/20 04/15/20 04/15/20 22:59 06:59 14:59 Intake Total 680 Balance 680 Intake: Oral 480 Other 200 Other: Voiding Method Toilet Toilet Toilet # Voids 1 2 04/14/20 09:05 04/15/20 05:48
--- NOTE | 2020-04-15 16:16 | P.DS ---
Providers Date of admission: 04/14/20 10:50 Attending physician: Shannon Damon Consults: 04/14/20 10:50 Consult Physician Urgent Consulting Provider: Elodia Kovacs Consult Reason/Comments: cp Do you want consulting provider notified?: Yes Primary care physician: [facility] Course: 45-year-old female came in with complains of midsternal chest pain which started around the today morning lasted for a few hours for stress-induced 10 in severity patient the pain is achy in nature no associated dyspnea nausea or diaphoresis patient had slight lightheadedness. Patient denied any fever chills patient had any cough or chest pain is nonpleuritic not associated with food. Patient denied any cough chest x-ray did not show pneumonia. Patient never had any cardiac workup in the past does have history of hypertension and hyperlipidemia does have prerenal premature coronary artery disease history in the family in her father.he does smoke marijuana. On daily basis. 04/15/2020 Patient was evaluated by cardiology no overnight events no further growth is please recommended by cardiology patient hypokalemia was corrected and the patient is being discharged today we are cutting down the dose of chlorthalidone to half patient potassium supplementation will be changed to potassium chloride sustained release patient will need BMP to be rechecked on Sunday because of chlorthalidone and potassium controlled on exam. We'll rule out acute coronary syndromes. Patient had 2-D echocardiogram was of which are still pending patient will follow with Dr. Trejo as an outpatient and patient will undergo outpatient stress testing PHYSICAL EXAMINATION: GENERAL: The patient is alert and oriented x3, not in any acute distress. Well developed, well nourished. HEENT: Pupils are round and equally reacting to light. EOMI. No scleral icterus. No conjunctival pallor. Normocephalic, atraumatic. No pharyngeal erythema. No thyromegaly. CARDIOVASCULAR: S1 and S2 present. No murmurs, rubs, or gallops. PULMONARY: Chest is clear to auscultation, no wheezing or crackles. ABDOMEN: Soft, nontender, nondistended, normoactive bowel sounds. No palpable organomegaly. MUSCULOSKELETAL: No joint swelling or deformity. EXTREMITIES: No cyanosis, clubbing, or pedal edema. NEUROLOGICAL: Gross neurological examination did not reveal any focal deficits. SKIN: No rashes. The rest of the medical problems as physician: Per to my dictation of H&P from yesterday Plan - Discharge Summary Discharge Rx Participant: No New Discharge Prescriptions: New Chlorthalidone [Hygroton] 25 mg PO DAILY tab Potassium Chloride ER [K-Dur 20] 20 meq PO DAILY #30 tab.er.prt Atorvastatin [Lipitor] 40 mg PO HS #90 tab Continue Levothyroxine Sodium [Synthroid] 50 mcg PO DAILY Venlafaxine HCl ER [Effexor XR] 75 mg PO DAILY #30 cap.er.24h Atorvastatin [Lipitor] 10 mg PO HS #15 tab clonazePAM [KlonoPIN] 1 mg PO HS Mirtazapine [Remeron] 7.5 mg PO HS clonazePAM [KlonoPIN] 0.5 mg PO QAM amLODIPine [Norvasc] 5 mg PO DAILY Benztropine Mesylate [Cogentin] 0.5 mg PO DAILY ARIPiprazole [Abilify] 5 mg PO DAILY Discontinued Chlorthalidone [Hygroten] 50 mg PO DAILY Potassium 595 Mg 595 mg PO QAM Discharge Medication List Levothyroxine Sodium [Synthroid] 50 mcg PO DAILY 09/22/19 [History] Atorvastatin [Lipitor] 10 mg PO HS #15 tab 09/26/19 [Rx] Venlafaxine HCl ER [Effexor XR] 75 mg PO DAILY #30 cap.er.24h 09/26/19 [Rx] ARIPiprazole [Abilify] 5 mg PO DAILY 04/14/20 [History] Benztropine Mesylate [Cogentin] 0.5 mg PO DAILY 04/14/20 [History] Mirtazapine [Remeron] 7.5 mg PO HS 04/14/20 [History] amLODIPine [Norvasc] 5 mg PO DAILY 04/14/20 [History] clonazePAM [KlonoPIN] 0.5 mg PO QAM 04/14/20 [History] clonazePAM [KlonoPIN] 1 mg PO HS 04/14/20 [History] Atorvastatin [Lipitor] 40 mg PO HS #90 tab 04/15/20 [Rx] Chlorthalidone [Hygroton] 25 mg PO DAILY tab 04/15/20 [Rx] Potassium Chloride ER [K-Dur 20] 20 meq PO DAILY #30 tab.er.prt 04/15/20 [Rx] Follow up Appointment(s)/Referral(s): Maximus Arellano DO [Primary Care Provider] - 3 Days Rikki Trejo MD [STAFF PHYSICIAN] - 04/22/20 1:00 pm (please bring line haul driver's license, insurance cards, and a list of medications with you to your follow up appointment. ) Discharge Disposition: HOME SELF-CARE
[2020-04-15] MEDS ORDERED: ATORVASTATIN 40 MG TAB PO SCH (21:00)
== END 2020-04-15 14:10 | disposition home or self-care (01) ==
LOC: EC 08:43 → 1SOBS 10:50
PROVIDERS: ADMIT Internal Medicine; ATTEND Internal Medicine
DX: R07.89 Other chest pain (principal); E87.6 Hypokalemia; T50.2X5A Adverse effect of carbonic-anhydrase inhibitors, benzothiadiazides and other diuretics, initial encounter; I11.9 Hypertensive heart disease without heart failure; E78.00 Pure hypercholesterolemia, unspecified; I45.10 Unspecified right bundle-branch block; E78.5 Hyperlipidemia, unspecified; Z03.818 Encounter for observation for suspected exposure to other biological agents ruled out; G89.29 Other chronic pain; M25.552 Pain in left hip; M54.9 Dorsalgia, unspecified; R42 Dizziness and giddiness; M21.372 Foot drop, left foot; F43.10 Post-traumatic stress disorder, unspecified; F31.9 Bipolar disorder, unspecified; F41.9 Anxiety disorder, unspecified; E66.9 Obesity, unspecified; Z68.37 Body mass index [BMI] 37.0-37.9, adult; F12.90 Cannabis use, unspecified, uncomplicated; Z79.890 Hormone replacement therapy; Z79.899 Other long term (current) drug therapy; Z88.1 Allergy status to other antibiotic agents; Z88.5 Allergy status to narcotic agent; Z98.891 History of uterine scar from previous surgery; Z87.891 Personal history of nicotine dependence; Z82.61 Family history of arthritis; Z82.49 Family history of ischemic heart disease and other diseases of the circulatory system; Z82.2 Family history of deafness and hearing loss; Z83.3 Family history of diabetes mellitus; Z82.1 Family history of blindness and visual loss; Z83.49 Family history of other endocrine, nutritional and metabolic diseases
CPT/HCPCS: 93005 ×2; 96366; 96365; 99285; 36415; 93306; 85379; 80061; 80053; 80048; 83735; 84132; 84484; 85025; 85610; 85730; 71046; G0378 ×2; U0003; J3480 ×2

== ENCOUNTER → 2020-09-07 | Outpatient (CLI) | payer BC ==
--- NOTE | 2020-09-07 10:32 | XR ---
EXAMINATION TYPE: XR lumbosacral spine 5 views, XR Hip Complete 2 views LT DATE OF EXAM: 09/07/2020 Comparison: None Clinical History: 45-year-old female [id number], [id number] LT HIP PAIN, LBP Findings: Lumbar spine: Moderate degenerative disc disease at L4-L5 with disc space narrowing and endplate spondylosis. Hyper trophic facet arthropathy lower lumbar spine. Vertebral body heights are preserved and alignment is m aintained. Unable to exclude a left L5 pars defect on these images. Left hip: Mild degenerative change at the left hip with subchondral sclerosis along the acetabular roof and mil d marginal spurring along the posterior femoral head neck junction. There is a small anterior femoral head neck junction osseous excrescence. No acute fracture, subluxation, dislocation. IMPRESSION: 1. Lumbar spine: Unable to exclude a left L5 pars defect on these images. Facet arthropathy lower lum bar spine and moderate degenerative disc disease L4-L5. No vertebral compression collapse or malalign ment. 2. 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 No acute osseous abnormality seen .
== END | disposition home or self-care (01) ==
LOC: RADXRYALE 10:05
PROVIDERS: ATTEND Physician Assistant Medical
DX: M51.36 Other intervertebral disc degeneration, lumbar region (principal); M47.816 Spondylosis without myelopathy or radiculopathy, lumbar region; M16.12 Unilateral primary osteoarthritis, left hip
CPT/HCPCS: 72110; 73502

== ENCOUNTER → 2022-02-10 | Outpatient (CLI) | payer BC ==
--- NOTE | 2022-02-13 11:33 | MM ---
Reason for exam: screening (asymptomatic). Last mammogram was performed 2 years and 3 months ago. Physical Findings: A clinical breast exam by your physician is recommended on an annual basis and results should be correlated with mammographic findings. MG 3D Screening Mammo W/Cad Bilateral CC and MLO view(s) were taken. Prior study comparison: November 17, 2019, bilateral MG screening mammo w CAD. September 02, 2015, bilateral MG screening mammo w CAD. There are scattered fibroglandular densities. There is no discrete abnormality. No significant changes when compared with prior studies. ASSESSMENT: Negative, BI-RAD 1 RECOMMENDATION: Routine screening mammogram of both breasts in 1 year.
== END | disposition home or self-care (01) ==
LOC: RADMAMWWP 12:02
PROVIDERS: ATTEND Family Medicine
DX: Z12.31 Encounter for screening mammogram for malignant neoplasm of breast (principal)
CPT/HCPCS: 77063; 77067

== ENCOUNTER → 2023-02-21 | Outpatient (CLI) | payer BC ==
--- NOTE | 2023-02-21 11:44 | MM ---
Reason for Exam: Screening (asymptomatic). Last screening mammogram was performed 12 month(s) ago. Patient History: Menarche at age 10. First Full-Term at age 27. Perimenopausal. Risk Values: Nuzhat 5 year model risk: 1.0%. NCI Lifetime model risk: 10.0%. Prior Study Comparison: 09/02/2015 Bilateral Screening Mammogram, [facility]. 11/17/2019 Bilateral Screening Mammogram, [facility]. 02/10/2022 Bilateral Screening Mammogram, [facility]. Tissue Density: There are scattered fibroglandular densities. Findings: Analyzed By CAD. There is no suspicious group of microcalcifications or new suspicious mass in either breast. Overall Assessment: Negative, BI-RAD 1 Management: Screening Mammogram of both breasts in 1 year. A clinical breast exam by your physician is recommended on an annual basis and results should be correlated with mammographic findings. Electronically signed and approved by: Randolph Agrawal D.O.
== END | disposition home or self-care (01) ==
LOC: RADMAMWWP 07:00
PROVIDERS: ATTEND Family Medicine
DX: Z12.31 Encounter for screening mammogram for malignant neoplasm of breast (principal)
CPT/HCPCS: 77067

== ENCOUNTER → 2023-07-05 | Outpatient (CLI) | payer BC ==
--- NOTE | 2023-07-05 13:41 | XR ---
EXAMINATION TYPE: XR foot complete LT DATE OF EXAM: 07/05/2023 1:37 PM INDICATION: Patient age:Female; 48 years old; Reason for study: [id number] LT FOOT PAIN; [facility]. COMPARISON: None TECHNIQUE: The left foot was examined in the AP, oblique, and lateral projections. FINDINGS: No evidence of any acute osseous pathology. No osseous erosions. No periosteal reaction. Mild soft t issue swelling around the fifth metatarsal head. Joints are preserved. Incidental note is made of sym phalangism of the fifth distal interphalangeal joint. Small plantar calcaneal enthesophyte. IMPRESSION: 1. No evidence of acute fracture. 2. Mild soft tissue swelling around the fifth metatarsal head.
== END | disposition home or self-care (01) ==
LOC: RADXRYALE 13:22
PROVIDERS: ATTEND Physician Assistant
DX: M79.89 Other specified soft tissue disorders (principal)

== ENCOUNTER → 2024-06-11 | Outpatient (CLI) | payer BC ==
--- NOTE | 2024-07-03 14:35 | MM ---
Reason for Exam: Screening (asymptomatic). Last mammogram was performed 1 year(s) and 4 month(s) ago. Patient History: Menarche at age 10. First Full-Term at age 27. Perimenopausal. Last menstrual period: 05/30/2024 Risk Values: Nuzhat 5 year model risk: 1.1%. NCI Lifetime model risk: 9.7%. Prior Study Comparison: 11/17/2019 Bilateral Screening Mammogram, [facility]. 02/10/2022 Bilateral Screening Mammogram, [facility]. 02/21/2023 Bilateral MG screening mammo w CAD, [facility]. Tissue Density: The breasts are almost entirely fatty. Findings: Analyzed By CAD. Right breast: There is no suspicious group of microcalcifications or new suspicious mass. Left breast: There is no suspicious group of microcalcifications or new suspicious mass. Overall Assessment: Negative, BI-RAD 1 Management: Screening Mammogram of both breasts in [address] [facility] will attempt to contact patient to return for supplemental views and ultrasound if indicated. Patient should continue monthly self-breast exams. A clinical breast exam by your physician is recommended on an annual basis. This exam should not preclude additional follow-up of suspicious palpable abnormalities. Note on Nuzhat scores and lifetime risk: 1. A Nuzhat score greater than 3% is considered moderate risk. If this is the case, consider specialist referral to assess eligibility for a risk reducing agent. 2. If overall lifetime risk for the development of breast cancer is 20% or higher, the patient may qualify for future screening with alternating mammogram and breast MRI. Electronically signed and approved by: Frederic Paez DO
== END | disposition home or self-care (01) ==
LOC: RADMAMWWP 12:00
PROVIDERS: ATTEND Family Medicine
DX: Z12.31 Encounter for screening mammogram for malignant neoplasm of breast
CPT/HCPCS: 77063; 77067

== ENCOUNTER → 2025-04-16 | Outpatient (CLI) | payer BC ==
--- NOTE | 2025-04-16 15:37 | XR ---
EXAMINATION TYPE: XR Hip Complete LT DATE OF EXAM: 04/16/2025 3:28 PM COMPARISON: 10/04/2020 CLINICAL INDICATION: Female, 50 years old with history of [id number] LT HIP PAIN; [facility], pain TECHNIQUE: XR Hip Complete LT; Frontal and lateral views FINDINGS: No evidence for acute process, joint dislocation or significant soft tissue swelling. Osteo phyte formation of the superior acetabulum of the hip. There is mild joint space narrowing. IMPRESSION: 1. No evidence for acute process. 2. Mild hip osteoarthrosis. [facility] [place], , 04/16/2025 3:35 PM
== END | disposition home or self-care (01) ==
LOC: RADXRYALE 15:16
PROVIDERS: ATTEND Physician Assistant
DX: M16.12 Unilateral primary osteoarthritis, left hip (principal)
CPT/HCPCS: 73502